=== PATIENT | female | born 1945 | race American Indian/Alaskan Native ===

== ENCOUNTER 2016-06-18 17:15 | Inpatient (IN) | payer OTHER, MEDICARE ==
[2016-06-18] MEDS ORDERED: Albuterol/Ipratropium 3.0-0.5 MG/3 ML Neb Soln NEB ONE (18:54)
--- NOTE | 2016-06-18 18:58 | EDM.PDOC ---
ED HISTORY OF PRESENT ILLNESS - General Chief Complaint: Respiratory Problem Stated Complaint: SHORT OF BREATH; [phone] Time Seen by Provider: 06/18/16 18:56 Source of Information: Reports: Patient History Limitations: Reports: No limitations - History of Present Illness INITIAL COMMENTS - FREE TEXT/NARRATIVE: few days h/o cough body aches saw clinic got z-ping still same. - Related Data Allergies/ADRs: Allergies Allergy/AdvReac Type Severity Reaction Status Date / Time No Known Allergies Allergy Verified 03/16/16 08:55 Home Meds: Home Meds Aspirin [Halfprin] 81 mg PO DAILY 09/18/14 [History] Calcium Carbonate/Vitamin D3 [Calcium 500 + Vit D 200 Caplet] 1 tab PO DAILY 04/04 [History] Insulin Aspart [Novolog Flexpen] 9 unit SUBCUT TID 09/18/14 [History] Insulin Detemir [Levemir] 56 units SUBCUT BEDTIME 09/18/14 [History] Levothyroxine 125 mcg PO DAILY 09/18/14 [History] Lisinopril 10 mg PO DAILY 09/18/14 [History] Multivitamin with Minerals [Multiple Vitamin] 1 tab PO DAILY 09/18/14 [History] sitaGLIPtin Phos/Metformin HCl [Janumet 50-500 MG] 1 tab PO BID 09/18/14 [ History] Past Medical History HEENT History: Reports: Cataract, Impaired vision Cardiovascular History: Reports: Hypertension Other Cardiovascular History: HYPERLIPIDEMIA Respiratory History: Reports: Bronchitis, recurrent Other Gastrointestinal History: positive hemoccult Other Musculoskeletal History: DEGENERATIVE JOINT DISEASE; FX R CLAVICLE Endocrine/Metabolic History: Reports: Diabetes, type II, Hypothyroidism Other Endocrine/Metabolic History: HYPOTHYRIODISM - Past Surgical History HEENT Surgical History: Reports: Other (see below) Other HEENT Surgeries/Procedures: Pt is scheduled for cataract surgery later this month Other Oncologic Surgeries/Procedures: R BREAST Social & Family History - Tobacco Use Smoking Status *Q: Never Smoker Second Hand Smoke Exposure: No - Caffeine Use Caffeine Use: Reports: Soda, Tea - Alcohol Use Days Per Week of Alcohol Use: 0 - Recreational Drug Use Recreational Drug Use: No ED ROS GENERAL - Review of Systems Review Of Systems: ROS reveals no pertinent complaints other than HPI. ED EXAM, GENERAL - Physical Exam Exam: See Below Exam Limited By: No limitations General Appearance: alert, WD/WN, mild distress, other (upset) Ears: hearing grossly normal Throat/Mouth: Normal voice, No airway compromise Head: atraumatic Neck: non-tender, full range of motion Respiratory/Chest: no respiratory distress, no accessory muscle use, rhonchi Cardiovascular: regular rate, rhythm GI/Abdominal: soft, non tender Neurological: alert, oriented, normal cognition, normal gait, no motor/sensory deficits Psychiatric: depressed mood Skin Exam: Warm, Dry Lymphatic: no adenopathy Course - Vital Signs Last Recorded V/S: Last Vital Signs Temp 36.0 C 06/18/16 20:39 Pulse 94 06/18/16 20:39 Resp 22 H 06/18/16 20:39 BP 116/58 L 06/18/16 20:39 Pulse Ox 88 L 06/18/16 20:39 - Orders/Labs/Meds Orders: Active Orders 24 hr Category Date Time Status RT Aerosol Therapy [RC] ASDIRECTED Care 06/18/16 18:55 Active Chest w Cont [CT] Urgent Exams 06/18/16 21:02 Taken CULTURE BLOOD [] Stat Lab 06/18/16 20:09 Received CULTURE STREP A CONFIRMATION [] Stat Lab 06/18/16 18:35 Results STREP SCRN A RAPID W CULT CONF [] Stat Lab 06/18/16 18:35 Results Sodium Chloride 0.9% [Normal Saline] 1,000 ml Med 06/18/16 20:15 Active IV ASDIRECTED Medication Orders Sodium Chloride (Normal Saline) 1,000 mls @ 50 mls/hr IV ASDIRECTED FLAVIA Last Admin: 06/18/16 20:15 Dose: 50 mls/hr Labs: Laboratory Tests 06/18/16 06/18/16 06/18/16 Range/Units 20:09 20:09 20:09 WBC 7.4 (5.0-10.0) 10^3/uL RBC 4.00 L (4.2-5.4) 10^6/uL Hgb 10.7 L (12.0-16.0) g/dL Hct 34.2 L (37.0-47.0) % MCV 85.5 (80-100) fL MCH 26.8 L (27.0-34.0) pg MCHC 31.3 L (33.0-35.0) g/dL Plt Count 187 (150-450) 10^3/uL Neut % (Auto) 62.8 (42.2-75.2) % Lymph % (Auto) 26.8 (20.5-50.1) % [place] % (Auto) 7.7 (2-8) % Eos % (Auto) 1.9 (1.0-3.0) % Baso % (Auto) 0.8 (0.0-1.0) % D-Dimer, Quantitative 1160 H (0-400) ng/mL Sodium 139 (135-145) mmol/L Potassium 3.7 (3.6-5.0) mmol/L Chloride 104 (101-111) mmol/L Carbon Dioxide 25.0 (21.0-31.0) mmol/L Anion Gap 13.7 BUN 17 (7-18) mg/dL Creatinine 0.9 (0.6-1.3) mg/dL Est Cr Clr Drug Dosing 50.94 mL/min Estimated GFR (MDRD) > 60 BUN/Creatinine Ratio 18.88 Glucose 71 L (74-105) mg/dL Lactic Acid (0.5-2.2) mmol/L Calcium 8.6 (8.4-10.2) mg/dl Total Bilirubin 0.8 (0.2-1.0) mg/dL AST 30 (10-42) IU/L ALT 16 (10-60) IU/L Alkaline Phosphatase 58 (42-121) IU/L Troponin I 0.02 (0.00-0.02) ng/ml B-Natriuretic Peptide 351 H (0-100) pg/ml Total Protein 7.0 (6.7-8.2) g/dl Albumin 3.6 (3.2-5.5) g/dl Globulin 3.4 Albumin/Globulin Ratio 1.06 / Range/Units 20:09 WBC (5.0-10.0) 10^3/uL RBC (4.2-5.4) 10^6/uL Hgb (12.0-16.0) g/dL Hct (37.0-47.0) % MCV (80-100) fL MCH (27.0-34.0) pg MCHC (33.0-35.0) g/dL Plt Count (150-450) 10^3/uL Neut % (Auto) (42.2-75.2) % Lymph % (Auto) (20.5-50.1) % [place] % (Auto) (2-8) % Eos % (Auto) (1.0-3.0) % Baso % (Auto) (0.0-1.0) % D-Dimer, Quantitative (0-400) ng/mL Sodium (135-145) mmol/L Potassium (3.6-5.0) mmol/L Chloride (101-111) mmol/L Carbon Dioxide (21.0-31.0) mmol/L Anion Gap BUN (7-18) mg/dL Creatinine (0.6-1.3) mg/dL Est Cr Clr Drug Dosing mL/min Estimated GFR (MDRD) BUN/Creatinine Ratio Glucose (74-105) mg/dL Lactic Acid 1.0 (0.5-2.2) mmol/L Calcium (8.4-10.2) mg/dl Total Bilirubin (0.2-1.0) mg/dL AST (10-42) IU/L ALT (10-60) IU/L Alkaline Phosphatase (42-121) IU/L Troponin I (0.00-0.02) ng/ml B-Natriuretic Peptide (0-100) pg/ml Total Protein (6.7-8.2) g/dl Albumin (3.2-5.5) g/dl Globulin Albumin/Globulin Ratio Meds: Medications Generic Name Dose Route Start Last Admin Trade Name Freq PRN Reason Stop Dose Admin Sodium Chloride 1,000 mls @ 50 mls/hr 06/18/16 20:15 06/18/16 20:15 Normal Saline IV 50 mls/hr ASDIRECTED FLAVIA Administration Discontinued Medications Generic Name Dose Route Start Last Admin Trade Name Freq PRN Reason Stop Dose Admin Albuterol/Ipratropium 3 ml 06/18/16 18:54 06/18/16 19:05 Duoneb 3.0-0.5 Mg/3 Ml NEB 06/18/16 18:55 3 ml ONETIME ONE Administration Furosemide 20 mg 06/18/16 20:04 06/18/16 20:15 Lasix IVPUSH 06/18/16 20:05 20 mg ONETIME ONE Administration Clindamycin Phosphate 900 mg/ 106 mls @ 200 mls/hr 06/18/16 21:09 06/18/16 21 :43 Sodium Chloride IV 06/18/16 21:40 Not Given ONETIME ONE Iopamidol 100 ml 06/18/16 21:02 06/18/16 21:41 Isovue-370 (76%) IVPUSH 06/18/16 21:03 100 ml ONETIME ONE Administration - Re-Assessments/Exams Free Text/Narrative Re-Assessment/Exam: 06/18/16 22:05 results discussed with Pt case discussed with Dr León who kindly admitted Pt Departure - Departure Time of Disposition: 22:06 Disposition: Admitted As Inpatient 67 Condition: good Clinical Impression: Pleural effusion Pneumonia Qualifiers: Pneumonia type: due to unspecified organism Laterality: right Lung location: lower lobe of lung Qualified Code(s): J18.1 - Lobar pneumonia, unspecified organism CHF (congestive heart failure) Qualifiers: Congestive heart failure type: unspecified congestive heart failure type Congestive heart failure chronicity: acute Qualified Code(s): I50.9 - Heart failure, unspecified Forms: ED Department Discharge - My Orders Last 24 Hours: My Active Orders 06/18/16 18:35 CULTURE STREP A CONFIRMATION [RM] Stat STREP SCRN A RAPID W CULT CONF [RM] Stat 06/18/16 18:55 RT Aerosol Therapy [RC] ASDIRECTED 06/18/16 20:09 CULTURE BLOOD [BC] Stat 06/18/16 20:15 Sodium Chloride 0.9% [Normal Saline] 1,000 ml IV ASDIRECTED 06/18/16 21:02 Chest w Cont [CT] Urgent - Assessment/Plan Last 24 Hours: My Active Orders 06/18/16 18:35 CULTURE STREP A CONFIRMATION [RM] Stat STREP SCRN A RAPID W CULT CONF [RM] Stat 06/18/16 18:55 RT Aerosol Therapy [RC] ASDIRECTED 06/18/16 20:09 CULTURE BLOOD [BC] Stat 06/18/16 20:15 Sodium Chloride 0.9% [Normal Saline] 1,000 ml IV ASDIRECTED 06/18/16 21:02 Chest w Cont [CT] Urgent
[2016-06-18] MEDS ORDERED: Furosemide 20 MG/2 ML VIAL IVPUSH ONE (20:04)
[2016-06-18] MEDS ORDERED: Sodium Chloride 0.9% 1,000 ML IV SCH (20:15)
[2016-06-18 20:52] LABS: CHLORIDE,CL 104 mmol/L (101-111); SODIUM,NA 139 mmol/L (135-145)
[2016-06-18] MEDS ORDERED: Iopamidol 755 Mg/ML 100 ML Bottle IVPUSH ONE (21:02)
[2016-06-18] MEDS ORDERED: Clindamycin Phosphate 900 MG in Sodium Chloride 0.9% 100 ML IV ONE (21:09)
--- NOTE | 2016-06-18 23:16 | HP ---
CHIEF COMPLAINT: Shortness of breath. HISTORY OF PRESENT ILLNESS: The patient is a 70-year-old lady who was admitted through the emergency room because of increasing shortness of breath. She mentioned a couple of weeks ago she was seen at the [facility] here in [place] because of bronchitis symptoms and she was given some penicillin-type of antibiotics for about 2 weeks, but she continued to have some coughing spells. Last week and early this week, she was seen at [facility] for a preop and she was noted to have some bronchitis. She was given Z-Dilan and she has been taking the Z-Dilan for the last 2 days, but lately she has noticed that even with minimal activity, she gets short of breath. She also admitted that she has some mild orthopnea. The patient denies though any fever or chills. Denies any chest pain, pedal edema, abdominal pain, dysuria, headache, nor any other complaints. Because of the above symptoms, she was seen in the emergency room. In the emergency room, she was noted to have right lobe pneumonia with some component of congestive heart failure/bilateral pleural effusion. Because of the above, she was then admitted for further evaluation and management. PAST MEDICAL HISTORY: Remarkable for type 2 diabetes mellitus, hypothyroidism, and hypertension. FAMILY HISTORY: Noncontributory. SOCIAL HISTORY: The patient is . She works at [employer]. She is a nonsmoker and non-alcohol drinker, and no illicit drug use. MEDICATIONS: Home medications: 1. Aspirin. 2. Calcium with vitamin D. 3. NovoLog. 4. Levemir. 5. Levothyroxine. 6. Lisinopril. 7. Multivitamins. 8. Janumet. ALLERGIES: No known drug allergies. REVIEW OF SYSTEMS: As in HPI. The rest of the review of systems is negative. PHYSICAL EXAMINATION: General: Very pleasant lady. She is alert and oriented, not in any acute respiratory distress. Vital Signs: Blood pressure is 120/64, pulse of 82, respirations 22, temperature of 97.2, saturation is 90% on room air. HEENT: Normocephalic. There are pink palpebral conjunctivae. Sclerae anicteric. No JVD. There is mild hepatojugular reflux. Heart: Regular rate and rhythm. Normal S1 and S2. No gallops. No significant murmurs. Lungs: Remarkable for faint crackles in both lower lung bases. No significant wheezing. Abdomen: Obese, soft, nontender. Bowel sounds positive. Extremities: Negative for any calf tenderness. There is trace bilateral pedal edema. No signs of cellulitis. LABORATORY DATA: CBC, WBC 7.4, hemoglobin is 10.7, hematocrit is 34.2, platelet is 187, D-dimer is 1160. Comp panel, glucose is 71. The rest of the panel unremarkable. BNP is 351. CAT scan of the chest is negative for any PE but showing right lobe infiltrate and bilateral pleural effusion. ADMITTING DIAGNOSES: 1. Right lobe pneumonia. 2. Congestive heart failure. 3. Type 2 diabetes mellitus. 4. Hypertension. 5. Hypothyroidism. TREATMENT PLAN: The patient is going to be admitted to General Medicine floor with telemetry. She will be empirically started on IV antibiotics. She will be continued on her insulin. She will be given IV Lasix and Lovenox for DVT prophylaxis, and the rest of the management as necessary. The patient is a full code. [facility] /[id number]
[2016-06-19] MEDS: Levofloxacin/Dextrose 5%-Water 500 MG in Premix Bag 1 BAG IV SCH ×2 (00:18→22:14)
[2016-06-19] MEDS: Albuterol/Ipratropium 3.0-0.5 MG/3 ML Neb Soln NEB SCH ×4 (00:19→22:13)
[2016-06-19] MEDS: Levothyroxine 125 MCG Tab PO SCH (06:13)
[2016-06-19] MEDS: Insulin Detemir 100 Units/ML 3 ML Pen SUBCUT SCH (07:05)
[2016-06-19] MEDS: Aspirin 81 MG Tab.EC PO SCH (08:26)
[2016-06-19] MEDS: Multivitamins,Therapeutic Tab PO SCH (08:26)
[2016-06-19] MEDS: Lisinopril 10 MG Tab PO SCH (08:26)
[2016-06-19] MEDS: Calcium Carbonate/Vitamin D3 1250 MG-200 Unit Tab PO SCH (08:26)
[2016-06-19] MEDS: Furosemide 20 MG Tab PO SCH (08:26)
[2016-06-19] MEDS: predniSONE 20 MG Tab PO SCH (08:26)
[2016-06-19] MEDS: Enoxaparin 40 MG/0.4 ML Syringe SUBCUT SCH (08:27)
[2016-06-19] MEDS: Insulin Aspart 100 Units/ML 3 ML Pen SUBCUT SCH ×3 (08:27→18:14)
--- NOTE | 2016-06-19 10:57 | PN ---
DATE: 06/19/2016 SUBJECTIVE: The patient this morning was feeling slightly better, and she had a good night sleep. She denies any worsening of shortness of breath. Denies any chest pain, abdominal pain, nausea, or vomiting. Telemetry remains in sinus rhythm with no significant arrhythmia. OBJECTIVE: Vital Signs: Blood pressure is 108/51, pulse of 87, respirations 20, temperature of 97.4, saturation is 96% on room air. Heart: Regular rate and rhythm. Normal S1 and S2. No gallops. No rubs. Lungs: Diminished breath sounds on both bases still with faint crackles, but no significant wheezing. Abdomen: Obese, otherwise soft and nontender. Bowel sounds positive. Extremities: Negative for any significant pedal edema. No calf tenderness. MEDICATIONS: Reviewed. PLAN: We will continue with her present management. We will discontinue telemetry and we will do a followup chest x-ray in a.m. [facility] /[id number]
[2016-06-19] MEDS: Acetaminophen 325 MG Tab PO PRN ×2 (12:53→21:42)
[2016-06-19] MEDS ORDERED: Insulin Detemir 100 Units/ML 3 ML Pen SUBCUT SCH (21:00)
[2016-06-19] MEDS ORDERED: Insulin Aspart 100 Units/ML 3 ML Pen SUBCUT ONE (21:20)
[2016-06-19] MEDS: Sodium Chloride 0.9% 10 ML Syringe FLUSH PRN (22:15)
[2016-06-20] MEDS: Albuterol/Ipratropium 3.0-0.5 MG/3 ML Neb Soln NEB SCH ×3 (06:14→22:42)
[2016-06-20] MEDS: Levothyroxine 125 MCG Tab PO SCH (06:14)
[2016-06-20] MEDS: Insulin Detemir 100 Units/ML 3 ML Pen SUBCUT SCH ×2 (06:33→08:06)
[2016-06-20 06:57] LABS: CHLORIDE,CL 102 mmol/L (101-111); SODIUM,NA 137 mmol/L (135-145)
[2016-06-20] MEDS: Furosemide 20 MG Tab PO SCH (08:02)
[2016-06-20] MEDS: Multivitamins,Therapeutic Tab PO SCH (08:02)
[2016-06-20] MEDS: Lisinopril 10 MG Tab PO SCH (08:02)
[2016-06-20] MEDS: Calcium Carbonate/Vitamin D3 1250 MG-200 Unit Tab PO SCH (08:02)
[2016-06-20] MEDS: Aspirin 81 MG Tab.EC PO SCH (08:05)
[2016-06-20] MEDS: predniSONE 20 MG Tab PO SCH (08:05)
[2016-06-20] MEDS: Insulin Aspart 100 Units/ML 3 ML Pen SUBCUT SCH ×3 (08:05→17:48)
[2016-06-20] MEDS: Enoxaparin 40 MG/0.4 ML Syringe SUBCUT SCH (08:08)
--- NOTE | 2016-06-20 08:56 | PN ---
DATE: 06/20/2016 SUBJECTIVE: The patient continues to do well. She had a good night sleep and shortness of breath is improving. The patient denies any chest pain, palpitation, orthopnea, abdominal pain, nausea, or vomiting. The patient's appetite has been good. OBJECTIVE: Vital Signs: Blood pressure is 124/66, pulse of 89, respirations of 20, temperature of 98. Heart: Regular rate and rhythm. Normal S1 and S2. No gallops. No rubs. Lungs: Diminished breath sounds on both bases. There are still very faint crackles, but improving. Abdomen: Soft, nontender. Bowel sounds positive. Extremities: Negative for any pedal edema. No calf tenderness. LABORATORY DATA: A lab workup this morning, CBC; WBC is 7.3, hemoglobin is 10.4, hematocrit is 33.2, platelet is 206. Chem-6; glucose is 343, BUN is 19. The rest of the panel unremarkable. BNP is 312. PLAN: We will continue with her present management, and she is going to have a followup chest x-ray today. We will also increase her activity to ad dinorah. We will also cut down the dose of prednisone to 20 mg a day. Otherwise, we will continue the rest of her management. [facility] /[id number]
--- NOTE | 2016-06-20 10:48 | CR ---
Clinical history: 70-year-old female shortness of breath, positive serum D dimer but "no CT evidence of pulmonary embolism or aortic dissection" (18 June 2016). Follow-up please. Interpretation: Abnormal. Generalized pulmonary venous congestion with cephalization of vascular flow and large dependent biba silor pleural effusions (cardiac silhouette upper limits of normal). CHF (BNP?) Renal failure? No new lung mass but some patchy retrocardiac right lower lobe atelectasis/infiltrate. No other infi ltrates, atelectasis or lobar collapse. No hilar/mediastinal lymphadenopathy. No pneumothorax.
[2016-06-20] MEDS ORDERED: Insulin Aspart 100 Units/ML 3 ML Pen SUBCUT ONE ×3 (12:00→21:30)
[2016-06-20] MEDS: Sodium Chloride 0.9% 10 ML Syringe FLUSH PRN ×3 (21:06→23:46)
[2016-06-20] MEDS: Levofloxacin/Dextrose 5%-Water 500 MG in Premix Bag 1 BAG IV SCH (22:43)
[2016-06-21] MEDS: Acetaminophen 325 MG Tab PO PRN (02:36)
[2016-06-21] MEDS: Levothyroxine 125 MCG Tab PO SCH (05:35)
[2016-06-21] MEDS: Albuterol/Ipratropium 3.0-0.5 MG/3 ML Neb Soln NEB SCH ×3 (07:14→23:00)
[2016-06-21] MEDS ORDERED: predniSONE 20 MG Tab PO SCH (08:00)
[2016-06-21] MEDS: Furosemide 20 MG Tab PO SCH (08:13)
[2016-06-21] MEDS: Calcium Carbonate/Vitamin D3 1250 MG-200 Unit Tab PO SCH (08:13)
[2016-06-21] MEDS: Multivitamins,Therapeutic Tab PO SCH (08:13)
[2016-06-21] MEDS: Enoxaparin 40 MG/0.4 ML Syringe SUBCUT SCH (08:13)
[2016-06-21] MEDS: Lisinopril 10 MG Tab PO SCH (08:13)
[2016-06-21] MEDS: Aspirin 81 MG Tab.EC PO SCH (08:13)
[2016-06-21] MEDS: Insulin Aspart 100 Units/ML 3 ML Pen SUBCUT SCH ×4 (08:15→21:48)
[2016-06-21] MEDS: Insulin Detemir 100 Units/ML 3 ML Pen SUBCUT SCH (08:16)
[2016-06-21] MEDS ORDERED: Non-Formulary Medication 1 Each (Sitagliptin Phos/Metformin Hcl [Janumet 50-500 Mg] 1 TAB) PO SCH (09:00)
[2016-06-21] MEDS ORDERED: Insulin Aspart 100 Units/ML 3 ML Pen SUBCUT ONE (12:21)
--- NOTE | 2016-06-21 13:54 | US ---
CLINICAL HISTORY: 70-year-old diabetic female, at bed rest, with abnormally elevated serum D dimer. Rule out DVT. INTERPRETATION: No sign of intraluminal echogenic thrombus and normal compressibility deep veins both groin, thigh a nd knee with satisfactory augmentation venous waveforms demonstrated respectively in the deep poplit eal, superficial and common veins both lower extremities. No Garcia's cyst. CONCLUSION: No sonographic evidence deep vein thrombosis, either lower extremity.
--- NOTE | 2016-06-21 15:48 | PCM.PN ---
- General Info Date of Service: 06/21/16 Admission Dx/Problem (Free Text): pneumonia Subjective Update: patient states that she is feeling better. She was started on steroids and is ago. Her blood sugars has been high. Today patient denies shortness breath, wheezing, chest pain, fever, chills, nausea, vomiting, and isn't incontinent symptoms, or any other symptoms. She denies history of smoking. - Patient Data Vitals - most recent: Last Vital Signs Temp 36.7 C 06/21/16 11:00 Pulse 102 H 06/21/16 14:41 Resp 20 06/21/16 14:32 BP 139/83 06/21/16 11:00 Pulse Ox 96 06/21/16 14:32 Weight - most recent: 86.296 kg I&O - last 24 hours: Intake & Output 06/21/16 06/21/16 06/21/16 06:59 14:59 22:59 Intake Total 1110 100 Output Total 700 1000 Balance 410 -900 Lab Results last 24 hrs: Laboratory Results - last 24 hr 06/20/16 06/20/16 06/20/16 Range/Units 16:55 17:05 20:48 Glucose 542 H* (74-105) mg/dL POC Glucose > 500 H* 433 H* (70-105) mg/dl 06/21/16 06/21/16 Range/Units 07:34 10:56 Glucose (74-105) mg/dL POC Glucose 311 H 451 H* (70-105) mg/dl Med Orders - Current: Current Medications Acetaminophen (Tylenol) 650 mg PO Q4H PRN PRN Reason: Pain (Mild 1-3)/fever Last Admin: 06/21/16 02:36 Dose: 650 mg Albuterol/Ipratropium (Duoneb 3.0-0.5 Mg/3 Ml) 3 ml NEB Q8HRRT [facility] Last Admin: 06/21/16 14:41 Dose: 3 ml Aspirin (Halfprin) 81 mg PO DAILY [facility] Last Admin: 06/21/16 08:13 Dose: 81 mg Calcium Carbonate (Calcium Carbonate/Vitamin D 1250 Mg-200 Unit) 1 tab PO DAILY [facility] Last Admin: 06/21/16 08:13 Dose: 1 tab Enoxaparin Sodium (Lovenox) 40 mg SUBCUT DAILY [facility] Last Admin: 06/21/16 08:13 Dose: 40 mg Furosemide (Lasix) 20 mg PO DAILY [facility] Last Admin: 06/21/16 08:13 Dose: 20 mg Insulin Aspart (Novolog) 9 unit SUBCUT TIDPC [facility] Last Admin: 06/21/16 12:22 Dose: Not Given Insulin Detemir (Levemir) 56 unit SUBCUT DAILY@0800 [facility] Last Admin: 06/21/16 08:16 Dose: 56 units Levofloxacin (Levaquin) 750 mg PO Q24H [facility] Levothyroxine Sodium (Levothyroxine) 125 mcg PO DAILY@0600 [facility] Last Admin: 06/21/16 05:35 Dose: 125 mcg Lisinopril (Prinivil) 10 mg PO DAILY [facility] Last Admin: 06/21/16 08:13 Dose: 10 mg Multivitamins (Thera) 1 each PO DAILY [facility] Last Admin: 06/21/16 08:13 Dose: 1 each Non-Formulary Medication (Sitagliptin Phos/Metformin Hcl [Janumet 50-500 Mg]) 1 tab PO BID [facility] Sodium Chloride (Saline Flush) 10 ml FLUSH ASDIRECTED PRN PRN Reason: Keep Vein Open Last Admin: 06/20/16 23:46 Dose: 10 ml Discontinued Medications Albuterol/Ipratropium (Duoneb 3.0-0.5 Mg/3 Ml) 3 ml NEB ONETIME ONE Stop: 06/18/16 18:55 Last Admin: 06/18/16 19:05 Dose: 3 ml Furosemide (Lasix) 20 mg IVPUSH ONETIME ONE Stop: 06/18/16 20:05 Last Admin: 06/18/16 20:15 Dose: 20 mg Sodium Chloride (Normal Saline) 1,000 mls @ 50 mls/hr IV ASDIRECTED [facility] Last Admin: 06/18/16 20:15 Dose: 50 mls/hr Clindamycin Phosphate 900 mg/ (Sodium Chloride) 106 mls @ 200 mls/hr IV ONETIME ONE Stop: 06/18/16 21:40 Last Admin: 06/18/16 21:43 Dose: Not Given Levofloxacin/Dextrose 500 mg/ (Premix) 100 mls @ 100 mls/hr IV Q24H [facility] Last Infusion: 06/20/16 23:48 Dose: Infused Insulin Aspart (Novolog) 5 unit SUBCUT ONETIME ONE Stop: 06/19/16 21:21 Last Admin: 06/19/16 21:40 Dose: 5 units Insulin Aspart (Novolog) 15 unit SUBCUT ONETIME ONE Stop: 06/20/16 12:01 Last Admin: 06/20/16 12:13 Dose: 15 units Insulin Aspart (Novolog) 15 unit SUBCUT ONETIME ONE Stop: 06/20/16 17:51 Last Admin: 06/20/16 17:56 Dose: 15 units Insulin Aspart (Novolog) 10 unit SUBCUT ONETIME ONE Stop: 06/20/16 21:31 Last Admin: 06/20/16 21:31 Dose: 10 units Insulin Aspart (Novolog) 15 unit SUBCUT ONETIME ONE Stop: 06/21/16 12:22 Last Admin: 06/21/16 13:13 Dose: 15 units Insulin Detemir (Levemir) 56 unit SUBCUT BEDTIME FLAVIA Insulin Detemir (Levemir) 56 unit SUBCUT ACBRK FLAVIA Last Admin: 06/20/16 06:33 Dose: Not Given Iopamidol (Isovue-370 (76%)) 100 ml IVPUSH ONETIME ONE Stop: 06/18/16 21:03 Last Admin: 06/18/16 21:41 Dose: 100 ml Prednisone (Prednisone) 40 mg PO WITHBREAKFAST FLAVIA Last Admin: 06/20/16 08:05 Dose: 40 mg Prednisone (Prednisone) 20 mg PO WITHBREAKFAST FLAVIA Last Admin: 06/21/16 08:13 Dose: 20 mg - Exam General: alert, oriented, cooperative. No: no acute distress, mild distress, moderate distress, severe distress, sedated, lethargic, obtunded HEENT: Pupils equal, Pupils reactive, EOMI, Mucous membr. moist/pink Neck: supple, trachea midline, no JVD Lungs: Normal respiratory effort, Decreased breath sounds (globally but fair air exchange). No: Crackles, Rales, Rhonchi, Rub, Stridor, Wheezing Cardiovascular: Regular Rate, Regular Rhythm Abdomen: bowel sounds present, soft, no tenderness, no distension. No: rigidity , rebound, guarding, tenderness, distension, CVA tenderness Back Exam: normal inspection Extremities: no edema Skin: warm, dry, intact Neurological: no new focal deficit Psy/Mental Status: alert, normal affect, normal mood - Problem List Review Problem List Initiated/Reviewed/Updated: Yes - My Orders Last 24 Hours: My Active Orders 06/21/16 09:00 sitaGLIPtin Phos/Metformin HCl [Janumet 50-500 MG] 1 tab PO BID 06/21/16 15:34 metFORMIN [Glucophage] 500 mg PO BIDMEALS 06/21/16 21:00 Levofloxacin [Levaquin] 750 mg PO Q24H - Plan Plan:: Right lower lobe pneumonia Continue his Levaquin Congestive heart failure Continue Lasix 20 po Daily Diabetes mellitus type II Blood sugar is uncontrolled We'll for the family to bring her Lilly but they forgot to do so. Will give metformin 500 [facility] hospital does not have Sitagliptin I will stop her prednisone as patient is not known for COPD or history of smoking. last dose was received yesterday. Start her on sliding scale insulin chronic hypothyroidism Continue Synthroid Essential hypertension Continue lisinopril continue Lovenox for DVT prophylaxis
[2016-06-21] MEDS: metFORMIN 500 MG Tab PO SCH ×2 (16:40→17:22)
[2016-06-21] MEDS ORDERED: Levofloxacin 500 MG Tab PO SCH (21:00)
[2016-06-22] MEDS: Acetaminophen 325 MG Tab PO PRN (00:16)
[2016-06-22] MEDS: Levothyroxine 125 MCG Tab PO SCH (06:15)
[2016-06-22] MEDS: Albuterol/Ipratropium 3.0-0.5 MG/3 ML Neb Soln NEB SCH (07:08)
[2016-06-22] MEDS ORDERED: Insulin Detemir 100 Units/ML 3 ML Pen SUBCUT SCH (07:19)
[2016-06-22] MEDS: Insulin Aspart 100 Units/ML 3 ML Pen SUBCUT SCH ×2 (08:15→12:28)
[2016-06-22] MEDS: Enoxaparin 40 MG/0.4 ML Syringe SUBCUT SCH (08:24)
[2016-06-22] MEDS: metFORMIN 500 MG Tab PO SCH (08:30)
[2016-06-22] MEDS: Calcium Carbonate/Vitamin D3 1250 MG-200 Unit Tab PO SCH (08:30)
[2016-06-22] MEDS: Aspirin 81 MG Tab.EC PO SCH (08:31)
[2016-06-22] MEDS: Furosemide 20 MG Tab PO SCH (08:31)
[2016-06-22] MEDS: Lisinopril 10 MG Tab PO SCH (08:31)
[2016-06-22] MEDS: Multivitamins,Therapeutic Tab PO SCH (08:31)
--- NOTE | 2016-06-22 09:45 | PCM.DCSUM1 ---
Discharge Summary - Hospital Course Free Text/Narrative:: 70-year-old female was sent as with a history of essential hypertension, diabetes mellitus type 2, hypothyroidism presented to emergency room with worsening shortness of breath that she had for 2 weeks. She failed 2 courses of antibiotic as an outpatient. She was complaining also of coughing spells. She admitted to having mild orthopnea. She denied fever, chills, chest pain, pedal edema, nausea, vomiting, abdominal pain, dysuria, headache. In the emergency room her chest x-ray showed right lobe pneumonia with possible component of congestive heart failure and bilateral pleural effusion. she was admitted to telemetry and started on empirical IV antibiotics with Levaquin in addition to IV Lasix. visit as she was started then steroids. Patient gradually got better however her blood sugar went up. On admission her d-dimer was elevated so CT chest with contrast was done and was negative for thrombosis. Also lower extremities Doppler was negative for DVT. since yesterday patient denies first breath, cough, chest pain, nausea, vomiting, fever, chills, any other symptoms. Her blood sugar has been running in the 400. Hospital did not have Januvia and family did not bring it. metformin was started yesterday. However blood sugar still high. Today increased levemir from 56-65 units. She was advised to check her blood sugar before each meal and if below 100 to call her private care provider or if taking her insulin. She was advised to see her primary care provider in 2-3 days. Patient verbalized understanding and agreed with the plan. Aerobic and anaerobic blood cultures have no growth for the lost 3 days. Rapid strep test and influenza test were negative on admission. - Discharge Data Discharge Date: 06/22/16 Discharge Disposition: Home, Self-Care 01 Condition: Good - Discharge Diagnosis/Problem(s) (1) Hyperglycemia SNOMED Code(s): 85128905 ICD Code: R73.9 - HYPERGLYCEMIA, UNSPECIFIED Status: Acute Current Visit : Yes (2) Diabetes mellitus SNOMED Code(s): 47727525 ICD Code: E11.9 - TYPE 2 DIABETES MELLITUS WITHOUT COMPLICATIONS Status: Acute Current Visit: Yes (3) Pneumonia SNOMED Code(s): 314503535 ICD Code: J18.9 - PNEUMONIA, UNSPECIFIED ORGANISM Status: Acute Current Visit: Yes Qualifiers: Pneumonia type: due to unspecified organism Laterality: right Lung location: lower lobe of lung Qualified Code(s): J18.1 - Lobar pneumonia, unspecified organism (4) Hypothyroidism SNOMED Code(s): 08989704 ICD Code: E03.9 - HYPOTHYROIDISM, UNSPECIFIED Status: Chronic Current Visit: No (5) Essential hypertension SNOMED Code(s): 14974829 ICD Code: I10 - ESSENTIAL (PRIMARY) HYPERTENSION Status: Chronic Current Visit: Yes - Patient Instructions Diet: Heart Healthy Diet, Diabetic Diet Activity: As Tolerated Driving: May Drive Today Showering/Bathing: May Shower Notify Provider of: Fever - Discharge Plan Prescriptions/Med Rec: Levofloxacin [Levaquin] 750 mg PO Q24H #3 tablet Home Medications: Home Meds Aspirin [Halfprin] 81 mg PO DAILY 09/18/14 [History] Calcium Carbonate/Vitamin D3 [Calcium 500-Vit D3 200 Caplet] 1 tab PO DAILY 04/04 [History] Insulin Aspart [Novolog Flexpen] 9 unit SUBCUT TID 09/18/14 [History] Levothyroxine 125 mcg PO DAILY 09/18/14 [History] Lisinopril 10 mg PO DAILY 09/18/14 [History] Multivitamin with Minerals [Multiple Vitamin] 1 tab PO DAILY 09/18/14 [History] sitaGLIPtin Phos/Metformin HCl [Janumet 50-500 MG] 1 tab PO BID 09/18/14 [ History] Insulin Detemir [Levemir] 65 unit SUBCUT DAILY@0800 pen 06/22/16 [Rx] Levofloxacin [Levaquin] 750 mg PO Q24H #3 tablet 06/22/16 [Rx] - Review of Systems General: Reports: No Symptoms HEENT: Reports: no symptoms Pulmonary: Reports: no symptoms Cardiovascular: Reports: No Symptoms Gastrointestinal: Reports: No symptoms Genitourinary: Reports: no symptoms Musculoskeletal: Reports: no symptoms Skin: Reports: no symptoms Neurological: Reports: No Symptoms Psychiatric: Reports: no symptoms - Patient Data Vitals - Most Recent: Last Vital Signs Temp 36.7 C 06/22/16 07:00 Pulse 85 06/22/16 07:08 Resp 20 06/22/16 07:00 BP 107/66 06/22/16 08:31 Pulse Ox 95 06/22/16 07:00 Weight - Most Recent: 86.296 kg I&O - Last 24 hours: Intake & Output 06/21/16 06/22/16 06/22/16 22:59 06:59 14:59 Intake Total 120 200 Balance 120 200 Lab Results - Last 24 hrs: Laboratory Results - last 24 hr 06/21/16 06/21/16 06/21/16 Range/Units 10:56 17:02 21:00 POC Glucose 451 H* 482 H* 417 H* (70-105) mg/dl 06/22/16 Range/Units 07:46 POC Glucose 263 H (70-105) mg/dl Med Orders - Current: Current Medications Acetaminophen (Tylenol) 650 mg PO Q4H PRN PRN Reason: Pain (Mild 1-3)/fever Last Admin: 06/22/16 00:16 Dose: 650 mg Albuterol/Ipratropium (Duoneb 3.0-0.5 Mg/3 Ml) 3 ml NEB Q8HRRT [facility] Last Admin: 06/22/16 07:08 Dose: 3 ml Aspirin (Halfprin) 81 mg PO DAILY [facility] Last Admin: 06/22/16 08:31 Dose: 81 mg Calcium Carbonate (Calcium Carbonate/Vitamin D 1250 Mg-200 Unit) 1 tab PO DAILY [facility] Last Admin: 06/22/16 08:30 Dose: 1 tab Enoxaparin Sodium (Lovenox) 40 mg SUBCUT DAILY [facility] Last Admin: 06/22/16 08:24 Dose: 40 mg Furosemide (Lasix) 20 mg PO DAILY [facility] Last Admin: 06/22/16 08:31 Dose: 20 mg Insulin Aspart (Novolog) 0 unit SUBCUT QIDACANDBED [facility] PRN Reason: Protocol Last Admin: 06/22/16 08:15 Dose: 9 units Insulin Detemir (Levemir) 65 unit SUBCUT DAILY@0800 [facility] Last Admin: 06/22/16 08:18 Dose: 65 units Levofloxacin (Levaquin) 750 mg PO Q24H [facility] Last Admin: 06/21/16 20:55 Dose: 750 mg Levothyroxine Sodium (Levothyroxine) 125 mcg PO DAILY@0600 [facility] Last Admin: 06/22/16 06:15 Dose: 125 mcg Lisinopril (Prinivil) 10 mg PO DAILY [facility] Last Admin: 06/22/16 08:31 Dose: 10 mg Metformin HCl (Glucophage) 500 mg PO BIDMEALS [facility] Last Admin: 06/22/16 08:30 Dose: 500 mg Multivitamins (Thera) 1 each PO DAILY [facility] Last Admin: 06/22/16 08:31 Dose: 1 each Sodium Chloride (Saline Flush) 10 ml FLUSH ASDIRECTED PRN PRN Reason: Keep Vein Open Last Admin: 06/20/16 23:46 Dose: 10 ml Discontinued Medications Albuterol/Ipratropium (Duoneb 3.0-0.5 Mg/3 Ml) 3 ml NEB ONETIME ONE Stop: 06/18/16 18:55 Last Admin: 06/18/16 19:05 Dose: 3 ml Furosemide (Lasix) 20 mg IVPUSH ONETIME ONE Stop: 06/18/16 20:05 Last Admin: 06/18/16 20:15 Dose: 20 mg Sodium Chloride (Normal Saline) 1,000 mls @ 50 mls/hr IV ASDIRECTED [facility] Last Admin: 06/18/16 20:15 Dose: 50 mls/hr Clindamycin Phosphate 900 mg/ (Sodium Chloride) 106 mls @ 200 mls/hr IV ONETIME ONE Stop: 06/18/16 21:40 Last Admin: 06/18/16 21:43 Dose: Not Given Levofloxacin/Dextrose 500 mg/ (Premix) 100 mls @ 100 mls/hr IV Q24H [facility] Last Infusion: 06/20/16 23:48 Dose: Infused Insulin [facility] ([facility]) [facility] Admin: 06/21/16 12:22 Dose: Not Given Insulin Aspart (Novolog) 5 unit SUBCUT ONETIME ONE Stop: 06/19/16 21:21 Last Admin: 06/19/16 21:40 Dose: 5 units Insulin Aspart (Novolog) 15 unit SUBCUT ONETIME ONE Stop: 06/20/16 12:01 Last Admin: 06/20/16 12:13 Dose: 15 units Insulin Aspart (Novolog) 15 unit SUBCUT ONETIME ONE Stop: 06/20/16 17:51 Last Admin: 06/20/16 17:56 Dose: 15 units Insulin Aspart (Novolog) 10 unit SUBCUT ONETIME ONE Stop: 06/20/16 21:31 Last Admin: 06/20/16 21:31 Dose: 10 units Insulin Aspart (Novolog) 15 unit SUBCUT ONETIME ONE Stop: 06/21/16 12:22 Last Admin: 06/21/16 13:13 Dose: 15 units Insulin Detemir (Levemir) 56 unit SUBCUT BEDTIME [facility] Insulin Detemir (Levemir) 56 unit SUBCUT ACBRK [facility] Last Admin: 06/20/16 06:33 Dose: Not Given Insulin Detemir (Levemir) 56 unit SUBCUT DAILY@0800 [facility] Last Admin: 06/21/16 08:16 Dose: 56 units Iopamidol (Isovue-370 (76%)) 100 ml IVPUSH ONETIME ONE Stop: 06/18/16 21:03 Last Admin: 06/18/16 21:41 Dose: 100 ml Non-Formulary Medication (Sitagliptin Phos/Metformin Hcl [Janumet 50-500 Mg]) 1 tab PO BID [facility] Last Admin: 06/21/16 16:41 Dose: Not Given Prednisone (Prednisone) 40 mg PO WITHBREAKFAST [facility] Last Admin: 06/20/16 08:05 Dose: 40 mg Prednisone (Prednisone) 20 mg PO WITHBREAKFAST [facility] Last Admin: 06/21/16 08:13 Dose: 20 mg - Exam General: Reports: alert, oriented, cooperative. Denies: no acute distress, mild distress, moderate distress, severe distress, sedated, lethargic, obtunded HEENT: Reports: Pupils equal, Pupils reactive, EOMI. Denies: Scleral icterus Neck: Reports: supple, trachea midline, no JVD Lungs: Reports: Clear to auscultation, Normal respiratory effort. Denies: Crackles, Rales, Rhonchi, Rub, Stridor, Wheezing Cardiovascular: Reports: Regular Rate, Regular Rhythm Abdomen: Reports: bowel sounds present, soft, no tenderness, no distension. Denies: rigidity, rebound, guarding, tenderness, distension, CVA tenderness, organomegaly (Female) Exam: Deferred Rectal (Female) Exam: Deferred Back Exam: Reports: normal inspection, full range of motion Extremities: Reports: no edema, no clubbing, no cyanosis, no calf tenderness. Denies: calf tenderness Skin: Reports: warm, dry, intact Neurological: Reports: no new focal deficit, normal gait, normal speech, normal tone, strength equal bilateral, sensation intact, cranial nerves intact Psy/Mental Status: Reports: alert, normal affect, normal mood *Q Meaningful Use (DIS) - VTE *Q VTE Criteria *Q: - Stroke *Q Stroke Criteria *Q: - AMI *Q AMI Criteria *Q:
[2016-06-22 10:45] VITALS: BP 140/71
== END 2016-06-22 13:56 | disposition home or self-care (01) | DRG 195 ==
LOC: DL.ED 17:15 → DL.MS 22:10 → DL.ED 22:10 → UNDOADMIN 22:10 → DL.MS 22:45
PROVIDERS: ADMIT Internal Medicine; ATTEND Internal Medicine
DX: J18.1 Lobar pneumonia, unspecified organism (principal); I11.0 Hypertensive heart disease with heart failure; E03.9 Hypothyroidism, unspecified; I50.9 Heart failure, unspecified; E11.65 Type 2 diabetes mellitus with hyperglycemia; Z79.4 Long term (current) use of insulin
CPT/HCPCS: 36415; 71020; 71260; 80048; 80053; 82947; 82962; 83605; 83880; 84484; 85025; 85379; 87040; 87081; 87430; 87804; 93970; 94640; 96361; 96374; 99285; A9270-GY; J1650; J1815-GY; J1940; J1956; J7030; J7050; Q9967

== ENCOUNTER 2016-07-07 08:04 | Day surgery (SDC) | payer OTHER ==
[~2016-07-07 08:04] MED LIST: Acetaminophen 325 MG Tab PO PRN; Acetaminophen/Codeine 300-30 MG Tab PO PRN; Cataract Ophth Solution EYELF ONE; Moxifloxacin 0.5% Ophth Soln 3 ML Bottle EYELF ONE; Ondansetron 4 MG/2 ML SDV IVPUSH PRN; Phenylephrine 10% Ophth Soln 5 ML Bot EYELF ONE; Phenylephrine 10% Ophth Soln 5 ML Bot EYELF PRN; Povidone-Iodine 5% Sterile Ophth Soln 30 ML Bottle EYELF ONE; Proparacaine 0.5% Ophth Soln 15 ML Bottle EYELF ONE; Sodium Chloride 0.9% 10 ML Syringe FLUSH PRN; Timolol Maleate 0.5% Ophth Soln 5 ML Bottle EYELF ONE
[2016-07-07] MEDS ORDERED: Midazolam 1 MG/ML 2 ML SDV ONE (08:48)
[2016-07-07] MEDS ORDERED: Dexamethasone 4 MG/ML SDV ONE (08:48)
[2016-07-07] MEDS ORDERED: Lidocaine 1% 30 ML SDV ONE (09:11)
[2016-07-07] MEDS ORDERED: Apraclonidine 0.5% Ophth Soln 5 ML Bot EYELF ONE (09:12)
[2016-07-07] MEDS ORDERED: Diclofenac Sodium 0.1% Ophth Soln 5 ML Bottle EYELF ONE (09:12)
[2016-07-07] MEDS ORDERED: Povidone-Iodine 5% Sterile Ophth Soln 30 ML Bottle EYELF ONE (09:12)
[2016-07-07] MEDS ORDERED: Balanced Salt Solution Ophth Irrig 500 ML Bottle IOCULAR ONE (09:13)
[2016-07-07] MEDS ORDERED: Dexamethasone/Neomycin/Polymyxin B Ophth Oint 3.5 GM Tube EYELF ONE (09:13)
[2016-07-07] MEDS ORDERED: Vancomycin 500 MG SDV EYELF ONE (09:13)
[2016-07-07] MEDS ORDERED: Chondroitin Sulfate/Hyaluronate Sodium Ophth Inj 0.75 ML Syringe EYELF ONE (09:14)
--- NOTE | 2016-07-07 11:15 | OR ---
DATE: 07/07/2016 PREOPERATIVE DIAGNOSIS: Cataract, left eye. POSTOPERATIVE DIAGNOSIS: Cataract, left eye. PROCEDURE: Extracapsular cataract extraction with intraocular lens implant, left eye. ANESTHESIA: Topical/local MAC. COMPLICATIONS: None. INDICATION: The patient was seen in the clinic with complaints of blurred vision, difficulty reading. She is unhappy with her vision. Clinical examination revealed visually significant cataract. I explained options. I offered cataract surgery and I explained risks preoperatively including but not limited to, infection, retinal detachment, loss of vision, need for additional surgery, and risks associated with anesthesia. We discussed implant options. She has preexisting of astigmatism, and she has requested a monofocal implant. She is comfortable wearing glasses following surgery if necessary. She voiced an understanding with respect to risks, limitations and wished to proceed. OPERATIVE DESCRIPTION: After informed consent was obtained and the risks, benefits, and alternatives were explained, the patient was brought to the operative suite and topical anesthesia was administered. The patient was then prepped and draped in the sterile fashion and attention was placed on the left eye. A sterile lid speculum was placed into the left eye to allow operative exposure. A full-thickness paracentesis was made in the temporal portion of the operative eye. Preservative-free lidocaine 0.1 mL was injected into the anterior chamber followed by viscoelastic. A full-thickness corneal incision was then made into the anterior chamber. A bent needle cystotome was used to create a small bernadette in the anterior capsule. The capsulorrhexis forceps was then used to create a 360-degree curvilinear capsulorrhexis. The nucleus was then removed using a phacoemulsification handpiece and the remaining cortical material was then removed with irrigation and aspiration handpiece. Following removal of the cortical material, the capsular bag was then inspected and noted to be free of any holes or tears. Viscoelastic was then injected into the capsular bag and the intraocular lens was inserted into the capsular bag. No complications occurred. The viscoelastic material was then removed from both the anterior and posterior chambers and from behind the IOL. The lens and capsular bag were then reinspected. The IOL was well centered and the capsular bag intact. The wound and paracentesis sites were inspected and hydrated with balanced saline solution. Both were found to be self-sealing. The intraocular pressure was assessed digitally and found to be within normal range. A good red reflex was noted at the completion of the procedure. No complications occurred during the operation. At the completion of the procedure, Maxitrol, Voltaren, and Iopidine drops were placed into the operative eye. A sterile eye shield was placed over the operative eye and the patient was transported to the postoperative recovery area having tolerated the procedure well. Postoperative instructions were given along with a postoperative appointment. The patient was advised to call with any questions or concerns. [facility] /[id number]
[2016-07-07 12:53] VITALS: BP 108/52
[2016-07-07] MEDS ORDERED: Dexamethasone 4 MG/ML SDV IV ONE (16:34)
[2016-07-07] MEDS ORDERED: Midazolam 1 MG/ML 2 ML SDV IV ONE (16:34)
== END 2016-07-07 10:23 | disposition home or self-care (01) ==
LOC: DL.SDS 08:04
PROVIDERS: ATTEND Ophthalmology
DX: H26.9 Unspecified cataract (principal); E11.9 Type 2 diabetes mellitus without complications; E03.9 Hypothyroidism, unspecified; E78.5 Hyperlipidemia, unspecified; I10 Essential (primary) hypertension; Z90.49 Acquired absence of other specified parts of digestive tract; Z98.890 Other specified postprocedural states; Z98.51 Tubal ligation status
CPT/HCPCS: 66984; A9270; C1780; J1100; J2250; J3370; J7050

== ENCOUNTER 2016-07-14 08:56 | Day surgery (SDC) | payer OTHER ==
[~2016-07-14 08:56] MED LIST changes: -Acetaminophen 325 MG Tab PO PRN; -Acetaminophen/Codeine 300-30 MG Tab PO PRN; -Cataract Ophth Solution EYELF ONE; +Dexamethasone 4 MG/ML SDV ONE; +Midazolam 1 MG/ML 2 ML SDV ONE; -Moxifloxacin 0.5% Ophth Soln 3 ML Bottle EYELF ONE; -Ondansetron 4 MG/2 ML SDV IVPUSH PRN; -Phenylephrine 10% Ophth Soln 5 ML Bot EYELF ONE; -Phenylephrine 10% Ophth Soln 5 ML Bot EYELF PRN; -Povidone-Iodine 5% Sterile Ophth Soln 30 ML Bottle EYELF ONE; -Proparacaine 0.5% Ophth Soln 15 ML Bottle EYELF ONE; -Sodium Chloride 0.9% 10 ML Syringe FLUSH PRN; -Timolol Maleate 0.5% Ophth Soln 5 ML Bottle EYELF ONE
[2016-07-14] MEDS ORDERED: Acetaminophen/Codeine 300-30 MG Tab PO PRN (09:00)
[2016-07-14] MEDS ORDERED: Phenylephrine 10% Ophth Soln 5 ML Bot EYERT PRN (09:00)
[2016-07-14] MEDS ORDERED: Moxifloxacin 0.5% Ophth Soln 3 ML Bottle EYERT ONE (09:00)
[2016-07-14] MEDS ORDERED: Timolol Maleate 0.5% Ophth Soln 5 ML Bottle EYERT ONE (09:00)
[2016-07-14] MEDS ORDERED: Phenylephrine 10% Ophth Soln 5 ML Bot EYERT ONE (09:00)
[2016-07-14] MEDS ORDERED: Cataract Ophth Solution EYERT ONE (09:00)
[2016-07-14] MEDS ORDERED: Proparacaine 0.5% Ophth Soln 15 ML Bottle EYERT ONE (09:00)
[2016-07-14] MEDS ORDERED: Ondansetron 4 MG/2 ML SDV IVPUSH PRN (09:00)
[2016-07-14] MEDS ORDERED: Acetaminophen 325 MG Tab PO PRN (09:00)
[2016-07-14] MEDS ORDERED: Sodium Chloride 0.9% 10 ML Syringe FLUSH PRN (09:00)
[2016-07-14] MEDS ORDERED: Povidone-Iodine 5% Sterile Ophth Soln 30 ML Bottle EYERT ONE ×2 (09:00→09:56)
[2016-07-14] MEDS ORDERED: Dexamethasone/Neomycin/Polymyxin B Ophth Oint 3.5 GM Tube EYERT ONE (09:56)
[2016-07-14] MEDS ORDERED: Tetracaine HCl/PF 0.5% 4 ML Bottle EYERT ONE (09:57)
[2016-07-14] MEDS ORDERED: Apraclonidine 0.5% Ophth Soln 5 ML Bot EYERT ONE (09:57)
[2016-07-14] MEDS ORDERED: Vancomycin 500 MG SDV EYERT ONE (09:57)
[2016-07-14] MEDS ORDERED: Chondroitin Sulfate/Hyaluronate Sodium Ophth Inj 0.75 ML Syringe EYERT ONE (09:57)
[2016-07-14] MEDS ORDERED: Lidocaine 1% 30 ML SDV ONE (09:57)
[2016-07-14] MEDS ORDERED: Balanced Salt Solution Ophth Irrig 500 ML Bottle IOCULAR ONE (09:58)
--- NOTE | 2016-07-14 10:57 | OR ---
DATE: 07/14/2016 PREOPERATIVE DIAGNOSIS: Cataract, right eye. POSTOPERATIVE DIAGNOSIS: Cataract, right eye. PROCEDURE: Extracapsular cataract extraction with intraocular lens implant, right eye. ANESTHESIA: Topical/local MAC. COMPLICATIONS: None. INDICATION: Mrs. Ordaz was seen in the clinic. She has complained of a progressive change in vision. Her clinical examination reveals visually significant cataract and astigmatism. I explained options. I offered cataract surgery and I explained risks preoperatively including but not limited to, infection, retinal detachment, loss of vision, need for additional surgery, and risks associated with anesthesia. We discussed implant options. She has requested a toric implant. I explained that she may still require spectacle correction for some activities. She has voiced an understanding. She is symptomatic and requested surgery. OPERATIVE DESCRIPTION: After informed consent was obtained and the risks, benefits, and alternatives were explained, the patient was brought to the operative suite and topical anesthesia was administered. The patient was then prepped and draped in the sterile fashion and attention was placed on the right eye. A sterile lid speculum was placed into the right eye to allow operative exposure. A full-thickness paracentesis was made in the temporal portion of the operative eye. Preservative-free lidocaine 0.1 mL was injected into the anterior chamber followed by viscoelastic. A full-thickness corneal incision was then made into the anterior chamber. A bent needle cystotome was used to create a small bernadette in the anterior capsule. The capsulorrhexis forceps was then used to create a 360-degree curvilinear capsulorrhexis. The nucleus was then removed using a phacoemulsification handpiece and the remaining cortical material was then removed with irrigation and aspiration handpiece. Following removal of the cortical material, the capsular bag was then inspected and noted to be free of any holes or tears. Viscoelastic was then injected into the capsular bag and the intraocular lens was inserted into the capsular bag. The implant was oriented to correspond with preoperative corneal freeman made with the patient in the upright position. The viscoelastic material was then removed from both the anterior and posterior chambers and from behind the IOL. The lens and capsular bag were then reinspected. The IOL was well centered and the capsular bag intact. The wound and paracentesis sites were inspected and hydrated with balanced saline solution. Both were found to be self-sealing. The intraocular pressure was assessed digitally and found to be within normal range. A good red reflex was noted at the completion of the procedure. No complications occurred during the operation. At the completion of the procedure, Maxitrol, Voltaren, and Iopidine drops were placed into the operative eye. A sterile eye shield was placed over the operative eye and the patient was transported to the postoperative recovery area having tolerated the procedure well. Postoperative instructions were given along with a postoperative appointment. The patient was advised to call with any questions or concerns. No complications occurred. [facility] /[id number]
[2016-07-14 12:44] VITALS: BP 114/61
[2016-07-14] MEDS ORDERED: Dexamethasone 4 MG/ML SDV IV ONE (16:42)
[2016-07-14] MEDS ORDERED: Midazolam 1 MG/ML 2 ML SDV IV ONE (16:42)
== END 2016-07-14 11:00 | disposition home or self-care (01) ==
LOC: DL.SDS 08:56
PROVIDERS: ATTEND Ophthalmology
DX: H26.9 Unspecified cataract (principal); E11.9 Type 2 diabetes mellitus without complications; E78.5 Hyperlipidemia, unspecified; E03.9 Hypothyroidism, unspecified; Z90.49 Acquired absence of other specified parts of digestive tract; Z98.890 Other specified postprocedural states; Z98.51 Tubal ligation status
CPT/HCPCS: 66984; A9270; J1100; J2250; J3370; J7050; V2787

== ENCOUNTER 2016-08-03 16:23 | Inpatient (IN) | payer OTHER, MEDICARE ==
--- NOTE | 2016-08-03 17:20 | EDM.PDOC ---
{null, ED HPI GENERAL MEDICAL PROBLEM - General Chief Complaint: Respiratory Problem Stated Complaint: WHEN LAYS DOWN, CAN'T BREATH Time Seen by Provider: 08/03/16 17:15 Source of Information: Reports: Patient History Limitations: Reports: No Limitations - History of Present Illness INITIAL COMMENTS - FREE TEXT/NARRATIVE: This 70 yo female patient reports to the ED with increased shortness of breath over the past 2 days. The patient reports she has not been able to lye down today due to increased shortness of breath. The patient reports she was diagnosed with pneumonia about 1 month ago with similar symptoms. The patient attempted to get into the Clinic, but could not get an appointment until tomorrow morning. The patient was only able to speak 4-5 words between breaths. Onset: Sudden Onset Date: 08/02/16 Duration: Constant, Getting Worse Location: Reports: Chest Quality: Reports: Dull, Pressure Severity: Moderate Improves with: Reports: Rest Worsens with: Reports: Movement Associated Symptoms: Reports: Cough, Shortness of Breath, Weakness - Related Data Allergies Allergy/AdvReac Type Severity Reaction Status Date / Time No Known Allergies Allergy Verified 07/14/16 09:43 Home Meds: Home Meds Aspirin [Halfprin] 81 mg PO DAILY 09/18/14 [History] Calcium Carbonate/Vitamin D3 [Calcium 500-Vit D3 200 Caplet] 1 tab PO DAILY 04/04 [History] Insulin Aspart [Novolog Flexpen] 9 unit SUBCUT TID 09/18/14 [History] Levothyroxine 125 mcg PO DAILY 09/18/14 [History] Lisinopril 10 mg PO DAILY 09/18/14 [History] Multivitamin with Minerals [Multiple Vitamin] 1 tab PO DAILY 09/18/14 [History] sitaGLIPtin Phos/Metformin HCl [Janumet 50-500 MG] 1 tab PO BIDMEALS 09/18/14 [ History] Insulin Detemir [Levemir] 56 unit SUBCUT DAILY@0800 07/13/16 [History] Ketorolac [Acular 0.5% Ophth Soln] 1 drop EYEBOTH ASDIRECTED 07/13/16 [History] Moxifloxacin [Vigamox 0.5% Ophth Soln] 1 drop EYEBOTH ASDIRECTED 07/13/16 [ History] prednisoLONE Acetate [Prednisolone Acetate] 1 drop EYEBOTH ASDIRECTED 07/13/16 [ History] Past Medical History HEENT History: Reports: Cataract, Impaired Vision Cardiovascular History: Reports: Hypertension, Other (See Below) Other Cardiovascular History: HYPERLIPIDEMIA Respiratory History: Reports: Bronchitis, Recurrent Gastrointestinal History: Reports: Other (See Below) Other Gastrointestinal History: positive hemoccult Genitourinary History: Reports: None [employer] 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 Endocrine/Metabolic History: Reports: Diabetes, Type II, Hypothyroidism Other Endocrine/Metabolic History: HYPOTHYRIODISM Hematologic History: Reports: None Immunologic History: Reports: Other (See Below) Other Immunologic History: MRSA Oncologic (Cancer) History: Reports: None Dermatologic History: Reports: Other (See Below) Other Dermatologic History: CYST REMOVAL BREAST - Infectious Disease History Infectious Disease History: Reports: Chicken Pox, Measles, Mumps, Rubella - Past Surgical History Head Surgeries/Procedures: Reports: None HEENT Surgical History: Reports: Cataract Surgery Female Surgical History: Reports: Tubal Ligation Other Oncologic Surgeries/Procedures: non-cancerous cyst removed from right breast Social & Family History - Family History Cardiac: Reports: CAD, [place] Neurological: Reports: CVA Endocrine/Metabolic: Reports: Other (See Below) Other Endocrine/Metabolic Family History: Diabetes. Type unknown Oncologic: Reports: Breast - Tobacco Use Smoking Status *Q: Never Smoker Second Hand Smoke Exposure: Yes - Caffeine Use Caffeine Use: Reports: Soda, Tea - Alcohol Use Days Per Week of Alcohol Use: 0 - Recreational Drug Use Recreational Drug Use: No ED ROS GENERAL - Review of Systems Review Of Systems: ROS reveals no pertinent complaints other than HPI. ED EXAM, GENERAL - Physical Exam Exam: See Below Exam Limited By: No Limitations General Appearance: Alert, WD/WN, Moderate Distress, Obese Eye Exam: Bilateral Eye: EOMI, Normal Inspection, PERRL Ears: Normal External Exam, Normal Canal, Hearing Grossly Normal, Normal TMs Nose: Normal Inspection, Normal Mucosa, No Blood Throat/Mouth: Normal Inspection, Normal Lips, Normal Teeth, Normal Gums, Normal Oropharynx, Normal Voice, No Airway Compromise Head: Atraumatic, Normocephalic Neck: Normal Inspection, Supple, Non-Tender, Full Range of Motion Respiratory/Chest: No Accessory Muscle Use, Chest Non-Tender, Decreased Breath Sounds (bilateral lower lobes), Rhonchi (diffuse) Cardiovascular: Normal Peripheral Pulses, Regular Rate, Rhythm, No Edema, No Gallop, No JVD, No Murmur, No Rub GI/Abdominal: Normal Bowel Sounds, Soft, Non-Tender, No Organomegaly, No Distention, No Abnormal Bruit, No Mass (Female) Exam: Deferred Rectal (Female) Exam: Deferred Back Exam: Normal Inspection, Full Range of Motion, NT Extremities: Normal Inspection, Normal Range of Motion, Non-Tender, Normal Capillary Refill, No Pedal Edema Neurological: Alert, Oriented, CN II-XII Intact, Normal Cognition, Normal Gait, Normal Reflexes, No Motor/Sensory Deficits Psychiatric: Normal Affect, Normal Mood Skin Exam: Warm, Dry, Intact, Normal Color, No Rash Lymphatic: No Adenopathy Course - Vital Signs Last Recorded V/S: Last Vital Signs Temp 37.3 C 08/03/16 16:50 Pulse 100 08/03/16 16:50 Resp 16 08/03/16 16:50 BP 126/68 08/03/16 16:50 Pulse Ox 98 08/03/16 16:50 - Orders/Labs/Meds Orders: Active Orders 24 hr Category Date Time Status EKG Documentation Completion [RC] URGENT Care 08/03/16 18:27 Active RT Aerosol Therapy [RC] ASDIRECTED Care 08/03/16 17:22 Active CULTURE BLOOD [BC] Stat Lab 08/03/16 17:24 Received Labs: Laboratory Tests 08/03/16 08/03/16 08/03/16 Range/Units 17:24 17:24 17:24 WBC 8.8 (5.0-10.0) 10^3/uL RBC 3.65 L (4.2-5.4) 10^6/uL Hgb 9.5 L (12.0-16.0) g/dL Hct 31.1 L (37.0-47.0) % MCV 85.2 (80-100) fL MCH 26.0 L (27.0-34.0) pg MCHC 30.5 L (33.0-35.0) g/dL Plt Count 202 (150-450) 10^3/uL Neut % (Auto) 74.5 (42.2-75.2) % Lymph % (Auto) 17.4 L (20.5-50.1) % [place] % (Auto) 6.1 (2-8) % Eos % (Auto) 1.4 (1.0-3.0) % Baso % (Auto) 0.6 (0.0-1.0) % Sodium 136 (135-145) mmol/L Potassium 4.1 (3.6-5.0) mmol/L Chloride 104 (101-111) mmol/L Carbon Dioxide 26.0 (21.0-31.0) mmol/L Anion Gap 10.1 BUN 16 (7-18) mg/dL Creatinine 1.0 (0.6-1.3) mg/dL Est Cr Clr Drug Dosing 45.85 mL/min Estimated GFR (MDRD) 55 BUN/Creatinine Ratio 16.00 Glucose 90 (74-105) mg/dL Lactic Acid 1.0 (0.5-2.2) mmol/L Calcium 8.7 (8.4-10.2) mg/dl Total Bilirubin 0.8 (0.2-1.0) mg/dL AST 33 (10-42) IU/L ALT 25 (10-60) IU/L Alkaline Phosphatase 61 (42-121) IU/L Troponin I (0.00-0.02) ng/ml B-Natriuretic Peptide 674 H (0-100) pg/ml Total Protein 6.9 (6.7-8.2) g/dl Albumin 3.7 (3.2-5.5) g/dl Globulin 3.2 Albumin/Globulin Ratio 1.16 // Range/Units 17:24 WBC (5.0-10.0) 10^3/uL RBC (4.2-5.4) 10^6/uL Hgb (12.0-16.0) g/dL Hct (37.0-47.0) % MCV (80-100) fL MCH (27.0-34.0) pg MCHC (33.0-35.0) g/dL Plt Count (150-450) 10^3/uL Neut % (Auto) (42.2-75.2) % Lymph % (Auto) (20.5-50.1) % [place] % (Auto) (2-8) % Eos % (Auto) (1.0-3.0) % Baso % (Auto) (0.0-1.0) % Sodium (135-145) mmol/L Potassium (3.6-5.0) mmol/L Chloride (101-111) mmol/L Carbon Dioxide (21.0-31.0) mmol/L Anion Gap BUN (7-18) mg/dL Creatinine (0.6-1.3) mg/dL Est Cr Clr Drug Dosing mL/min Estimated GFR (MDRD) BUN/Creatinine Ratio Glucose (74-105) mg/dL Lactic Acid (0.5-2.2) mmol/L Calcium (8.4-10.2) mg/dl Total Bilirubin (0.2-1.0) mg/dL AST (10-42) IU/L ALT (10-60) IU/L Alkaline Phosphatase (42-121) IU/L Troponin I 0.03 H* (0.00-0.02) ng/ml B-Natriuretic Peptide (0-100) pg/ml Total Protein (6.7-8.2) g/dl Albumin (3.2-5.5) g/dl Globulin Albumin/Globulin Ratio Meds: Medications Discontinued Medications Generic Name Dose Route Start Last Admin Trade Name Freq PRN Reason Stop Dose Admin Albuterol/Ipratropium 3 ml 08/03/16 17:22 08/03/16 17:25 Duoneb 3.0-0.5 Mg/3 Ml NEB 08/03/16 17:23 3 ml ONETIME ONE Administration Albuterol/Ipratropium Confirm 08/03/16 17:21 08/03/16 17:23 Duoneb 3.0-0.5 Mg/3 Ml Administered 08/03/16 17:22 Not Given Dose 3 ml .ROUTE .STK-MED ONE Furosemide 40 mg 08/03/16 18:10 08/03/16 18:31 Lasix IVPUSH 08/03/16 18:11 40 mg NOW ONE Administration Departure - Departure Time of Disposition: 18:55 Disposition: Admitted As Inpatient 67 Condition: fair Clinical Impression: CHF (congestive heart failure) Qualifiers: Congestive heart failure type: unspecified congestive heart failure type Congestive heart failure chronicity: acute Qualified Code(s): I50.9 - Heart failure, unspecified - Discharge Information Instructions: Heart Failure, [id number] Forms: ED Department Discharge Care Plan Goals: Discussed the examination, lab, EKG and x-ray results with Dr. Trejo. Dr. Trejo accepted the patient for continued evaluation and management as an inpatient. - My Orders Last 24 Hours: My Active Orders 08/03/16 17:22 RT Aerosol Therapy [RC] ASDIRECTED 08/03/16 17:24 CULTURE BLOOD [BC] Stat 08/03/16 18:27 EKG Documentation Completion [RC] URGENT - Assessment/Plan Last 24 Hours: My Active Orders 08/03/16 17:22 RT Aerosol Therapy [RC] ASDIRECTED 08/03/16 17:24 CULTURE BLOOD [BC] Stat 08/03/16 18:27 EKG Documentation Completion [RC] URGENT }
[2016-08-03] MEDS ORDERED: Albuterol/Ipratropium 3.0-0.5 MG/3 ML Neb Soln ONE (17:21)
[2016-08-03] MEDS ORDERED: Albuterol/Ipratropium 3.0-0.5 MG/3 ML Neb Soln NEB ONE (17:22)
--- NOTE | 2016-08-03 17:50 | CR ---
{null, Clinical history: 70-year-old female with cough and shortness of breath. Interpretation: Abnormal. Chronic borderline cardiomegaly, generalized relative increased pulmonary venous congestion since to June 2016 exam and reproducible bibasilar dependent pleural effusions all characteristic of cardio vascular decompensation (CHF). No new lung mass, hilar lymphadenopathy or focal lobar pneumonia. Old healed fracture deformity mid right clavicle. No pneumothorax. CONCLUSION: CHF. }
[2016-08-03] MEDS ORDERED: Furosemide 40 MG/4 ML VIAL IVPUSH ONE (18:10)
[2016-08-03] MEDS ORDERED: Ondansetron 4 MG/2 ML SDV IVPUSH PRN (19:11)
[2016-08-03] MEDS ORDERED: Morphine 2 MG/ML Syringe IVPUSH PRN (19:11)
[2016-08-03] MEDS ORDERED: Polyethylene Glycol 3350 Powder 17 GM Packet PO PRN (19:11)
[2016-08-03] MEDS ORDERED: Zolpidem 5 MG Tab PO PRN (19:11)
[2016-08-03] MEDS ORDERED: Docusate Sodium 100 MG Cap PO PRN (19:11)
[2016-08-03] MEDS ORDERED: Acetaminophen 325 MG Tab PO PRN (19:11)
[2016-08-03] MEDS ORDERED: Albuterol/Ipratropium 3.0-0.5 MG/3 ML Neb Soln NEB PRN (19:11)
[2016-08-03] MEDS ORDERED: Albuterol 0.083% 2.5 MG/3 ML Neb Soln NEB PRN (19:11)
[2016-08-03] MEDS ORDERED: Moxifloxacin 0.5% Ophth Soln 3 ML Bottle EYEBOTH SCH (19:30)
--- NOTE | 2016-08-03 19:36 | PCM.HP ---
{null, H&P History of Present Illness - General Date of Service: 08/03/16 Admit Problem/Dx: Admission Diagnosis/Problem Admission Diagnosis/Problem CHF, Congestive heart failure Source of Information: Patient History Limitations: Reports: No Limitations - History of Present Illness Initial Comments - Free Text/Narative: 70-year-old female was sent as with a history of essential hypertension, diabetes mellitus type 2, hypothyroidism, recent eye Lasik surgery presented to emergency room with worsening shortness of breath that she had for 2 weeks. she started having cough yesterday. She admitted to having mild orthopnea. she gained about 6 pounds since last admission. Did not take her Lasix as supposed to. hospital she was admitted for pneumonia and possible congestive heart failure. At that time she was found to have component of bilateral pleural effusion she responded to Lasix. On that admission her d-dimer was elevated so CT chest with contrast was done and was negative for thrombosis. Also lower extremities Doppler was negative for DVT this time she denies fever, chills, chest pain, pedal edema, nausea, vomiting, abdominal pain, dysuria, headache. he admits Urinary frequency. In the emergency room her chest x-ray is consistent with CHF and bilateral pleural effusion. WBC 8.8. Hemoglobin 9.5.sodium 136. Potassium 4.1. Creatinine 1.0. BUN 16. Lactic acid 1.2. LFTs normal. Troponin 0.03. BNP 674.albumin 3.7. Blood port seen 6.9. She received IV Lasix 40 mg once in the emergency room. she also received DuoNeb. Patient stated that her blood glucose was 48 this morning after taking her levemir. her admission blood glucose is 90 - Related Data Allergies/Adverse Reactions: Allergies Allergy/AdvReac Type Severity Reaction Status Date / Time No Known Allergies Allergy Verified 07/14/16 09:43 Home Medications: Home Meds Aspirin [Halfprin] 81 mg PO DAILY 09/18/14 [History] Calcium Carbonate/Vitamin D3 [Calcium 500-Vit D3 200 Caplet] 1 tab PO DAILY 04/04 [History] Insulin Aspart [Novolog Flexpen] 9 unit SUBCUT TID 09/18/14 [History] Levothyroxine 125 mcg PO DAILY 09/18/14 [History] Lisinopril 10 mg PO DAILY 09/18/14 [History] Multivitamin with Minerals [Multiple Vitamin] 1 tab PO DAILY 09/18/14 [History] sitaGLIPtin Phos/Metformin HCl [Janumet 50-500 MG] 1 tab PO BIDMEALS 09/18/14 [ History] Insulin Detemir [Levemir] 56 unit SUBCUT DAILY@0800 07/13/16 [History] Ketorolac [Acular 0.5% Ophth Soln] 1 drop EYEBOTH ASDIRECTED 07/13/16 [History] Moxifloxacin [Vigamox 0.5% Ophth Soln] 1 drop EYEBOTH ASDIRECTED 07/13/16 [ History] prednisoLONE Acetate [Prednisolone Acetate] 1 drop EYEBOTH ASDIRECTED 07/13/16 [ History] Past Medical History HEENT History: Reports: Cataract, Impaired Vision Cardiovascular History: Reports: Hypertension, Other (See Below) Other Cardiovascular History: HYPERLIPIDEMIA Respiratory History: Reports: Bronchitis, Recurrent Gastrointestinal History: Reports: Other (See Below) Other Gastrointestinal History: positive hemoccult Genitourinary History: Reports: None 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 Endocrine/Metabolic History: Reports: Diabetes, Type II, Hypothyroidism Other Endocrine/Metabolic History: HYPOTHYRIODISM Hematologic History: Reports: None Immunologic History: Reports: Other (See Below) Other Immunologic History: MRSA Oncologic (Cancer) History: Reports: None Dermatologic History: Reports: Other (See Below) Other Dermatologic History: CYST REMOVAL BREAST - Infectious Disease History Infectious Disease History: Reports: Chicken Pox, Measles, Mumps, Rubella - Past Surgical History Head Surgeries/Procedures: Reports: None HEENT Surgical History: Reports: Cataract Surgery Female Surgical History: Reports: Tubal Ligation Other Oncologic Surgeries/Procedures: non-cancerous cyst removed from right breast Social & Family History - Family History Cardiac: Reports: CAD, [place] Neurological: Reports: CVA Endocrine/Metabolic: Reports: Other (See Below) Other Endocrine/Metabolic Family History: Diabetes. Type unknown Oncologic: Reports: Breast - Tobacco Use Smoking Status *Q: Never Smoker Second Hand Smoke Exposure: Yes - Caffeine Use Caffeine Use: Reports: Soda, Tea - Alcohol Use Days Per Week of Alcohol Use: 0 - Recreational Drug Use Recreational Drug Use: No H&P Review of Systems - Review of Systems: Review Of Systems: See Below General: Reports: Fatigue, Weight Gain. Denies: Fever, Chills, Night Sweats, Diaphoresis, Decreased Appetite HEENT: Reports: No Symptoms Pulmonary: Reports: Shortness of Breath, Cough. Denies: Wheezing, Pleuritic Chest Pain, Hemoptysis Cardiovascular: Reports: Dyspnea on Exertion, Orthopnea. Denies: Chest Pain, Palpitations, PND, Edema, Lightheadedness, Syncope, Claudication, Blood Pressure Problem Gastrointestinal: Reports: No Symptoms Genitourinary: Denies: Dysuria, Burning, Pain, Urgency, Incontinence Musculoskeletal: Reports: No Symptoms Skin: Reports: No Symptoms Psychiatric: Reports: No Symptoms Neurological: Reports: No Symptoms Hematologic/Lymphatic: Reports: No Symptoms Immunologic: Reports: No Symptoms Exam - Exam Exam: See Below - Vital Signs Vital Signs: Last Vital Signs Temp 37.3 C 08/03/16 16:50 Pulse 100 08/03/16 16:50 Resp 16 08/03/16 16:50 BP 126/68 08/03/16 16:50 Pulse Ox 98 08/03/16 16:50 Weight: 88.904 kg - Exam General: Alert, Oriented, Cooperative, Mild Distress (due to shortness of breath ). No: Moderate Distress, Severe Distress, Sedated, Lethargic, Obtunded HEENT: Conjunctiva Clear, EACs Clear, EOMI, Hearing Intact, Mucosa Moist & Jeff , Nares Patent, Normal Nasal Septum, Posterior Pharynx Clear, Pupils Equal, Pupils Reactive, TMs Clear Neck: Supple, Trachea Midline Lungs: Decreased Breath Sounds (in bases), Crackles (in bases), Rhonchi. No: Rub, Stridor, Wheezing Cardiovascular: Regular Rate, Regular Rhythm, Normal S1, Normal S2. No: Gallop/ S3, Gallop/S4 Abdomen: Normal Bowel Sounds, Soft, Pelvis Stable. No: Distention, Guarding, Rigidity, Rebound (Female) Exam: Deferred Rectal (Female) Exam: Deferred Back Exam: Normal Inspection, Full Range of Motion Extremities: Normal Pulses, Edema (+1 bilateral lower extremities edema). No: Clubbing, Cyanosis, Calf Tenderness, Cool Skin: Warm, Dry, Intact Neurological: Cranial Nerves Intact, Reflexes Equal Bilateral Neuro Extensive - Mental Status: Alert, Oriented x3, Normal Mood/Affect, Normal Cognition, Memory Intact Neuro Extensive - Motor, Sensory, Reflexes: CN II-XII Intact, Normal Reflexes. No: Abnormal Motor Psychiatric: Alert, Normal Affect, Normal Mood - Patient Data Result Diagrams: 08/03/16 17:24 08/03/16 17:24 *Q Meaningful Use (ADM) - VTE *Q VTE Criteria *Q: - Stroke *Q Stroke Criteria *Q: - AMI *Q AMI Criteria *Q: - Problem List (1) Acute on chronic congestive heart failure SNOMED Code(s): 32039545 ICD Code: I50.9 - HEART FAILURE, UNSPECIFIED Status: Acute Priority: High Current Visit: Yes (2) Bronchitis SNOMED Code(s): 11888399 ICD Code: J40 - BRONCHITIS, NOT SPECIFIED ACUTE OR CHRONIC Status: Acute Priority: Medium Current Visit: No Onset Date: 10/19/14 (3) Diabetes mellitus SNOMED Code(s): 21898905 ICD Code: E11.9 - TYPE 2 DIABETES MELLITUS WITHOUT COMPLICATIONS Status: Chronic Current Visit: No (4) Pleural effusion SNOMED Code(s): 19395166 ICD Code: J90 - PLEURAL EFFUSION, NOT ELSEWHERE CLASSIFIED Status: Chronic Current Visit: No (5) Essential hypertension SNOMED Code(s): 11435311 ICD Code: I10 - ESSENTIAL (PRIMARY) HYPERTENSION Status: Chronic Current Visit: No (6) Hypothyroidism SNOMED Code(s): 78949935 ICD Code: E03.9 - HYPOTHYROIDISM, UNSPECIFIED Status: Chronic Current Visit: No Problem List Initiated/Reviewed/Updated: Yes Orders Last 24hrs: Active Orders 24 hr Category Date Time Status Accu Check [Blood Glucose Check, Bedside] [] Care 08/03/16 19:22 Active QIDACANDBED Echo Comp wo Cont [US] Routine Exams 08/03/16 19:24 Ordered TSH ULTRASENSITIVE [CHEM] AM Lab 08/04/16 05:11 Ordered Aspirin [Halfprin] Med 08/04/16 09:00 Ordered 81 mg PO DAILY Calcium Carbonate/Vitamin D3 [Calcium Carbonate/Vitamin Med 08/04/16 09:00 Ordered D 1250 MG-200 Unit] 1 tab PO DAILY Insulin Aspart [NovoLOG] Med 08/03/16 21:00 Ordered 9 unit SUBCUT TID Insulin Aspart [NovoLOG] Med 08/03/16 21:00 Ordered See Protocol SUBCUT QIDACANDBED Insulin Detemir [Levemir] Med 08/04/16 08:00 Ordered 56 unit SUBCUT DAILY@0800 Ketorolac Med 08/03/16 19:30 Ordered 1 drop EYEBOTH ASDIRECTED Levofloxacin/Dextrose 5%-Water [Levaquin in D5W 750 MG/ Med 08/03/16 19:30 Ordered 150 ML] 750 mg Premix Bag 1 bag IV Q24H Levothyroxine Med 08/04/16 09:00 Ordered 125 mcg PO DAILY Lisinopril [Prinivil] Med 08/04/16 09:00 Ordered 10 mg PO DAILY Moxifloxacin [Vigamox 0.5% Ophth Soln] Med 08/03/16 19:30 Ordered DOSE ml EYEBOTH ASDIRECTED Multivitamin with Minerals [Multiple Vitamin] Med 08/04/16 09:00 Ordered 1 tab PO DAILY Potassium Chloride [Klor-Con 10] Med 08/03/16 23:00 Once 20 meq PO ONETIME ONE prednisoLONE Acetate [Pred Forte 1% Ophth Susp] Med 08/03/16 19:30 Ordered DOSE ml EYEBOTH ASDIRECTED sitaGLIPtin Phos/Metformin HCl [Janumet 50-500 MG] Med 08/04/16 08:00 Ordered 1 tab PO BIDMEALS Medication Orders Acetaminophen (Tylenol) 650 mg PO Q4H PRN PRN Reason: Pain (Mild 1-3)/fever Albuterol (Proventil Neb Soln) 2.5 mg NEB Q2H PRN PRN Reason: shortness of breath/wheezing Albuterol/Ipratropium (Duoneb 3.0-0.5 Mg/3 Ml) 3 ml NEB Q6H PRN PRN Reason: shortness of breath/wheezing Aspirin (Halfprin) 81 mg PO DAILY [facility]LA[facility] Calcium Carbonate (Calcium Carbonate/Vitamin D 1250 Mg-200 Unit) 1 tab PO DAILY [facility] Docusate Sodium (Colace) 100 mg PO BID PRN PRN Reason: Constipation Enoxaparin Sodium (Lovenox) 40 mg SUBCUT DAILY [facility] Furosemide (Lasix) 20 mg IVPUSH Q8H [facility]IA Stop: 08/04/16 08:00 Levofloxacin/Dextrose 750 mg/ (Premix) 150 mls @ 100 mls/hr IV Q24H [facility] Insulin Aspart (Novolog) 0 unit SUBCUT QIDACANDBED [facility] PRN Reason: Protocol Insulin Aspart (Novolog) 9 unit SUBCUT TID [facility] Insulin Detemir (Levemir) 56 unit SUBCUT DAILY@0800 [facility] Levothyroxine Sodium (Levothyroxine) 125 mcg PO DAILY [facility] Lisinopril (Prinivil) 10 mg PO DAILY [facility] Morphine Sulfate (Morphine) 2 mg IVPUSH Q2H PRN PRN Reason: Pain (severe 7-10) Moxifloxacin HCl (Vigamox 0.5% Oph Soln) ml EYEBOTH ASDIRECTED [facility] Non-Formulary Medication (Ketorolac) 1 drop EYEBOTH ASDIRECTED [facility] Non-Formulary Medication (Multivitamin With Minerals [Multiple Vitamin]) 1 tab PO DAILY [facility] Non-Formulary Medication (Sitagliptin Phos/Metformin Hcl [Janumet 50-500 Mg]) 1 tab PO BIDMEALS [facility] Ondansetron HCl (Zofran) 4 mg IVPUSH Q6H PRN PRN Reason: Nausea/Vomiting Polyethylene Glycol (Miralax) 17 gm PO DAILY PRN PRN Reason: Constipation Potassium Chloride (Klor-Con 10) 20 meq PO ONETIME ONE Stop: 08/03/16 23:01 Prednisolone Acetate (Pred Forte 1% Oph Susp) ml EYEBOTH ASDIRECTED [facility] Sodium Chloride (Saline Flush) 10 ml FLUSH ASDIRECTED PRN PRN Reason: Keep Vein Open Zolpidem Tartrate (Ambien) 5 mg PO BEDTIME PRN PRN Reason: Sleep Assessment/Plan Comment:: Acute on chronic congestive heart failure chest x-ray and BNP are consistent with congestive heart failure She received Lasix 40 mg IV once in the emergency room -Continue Lasix 20 mg IV every 8 hours for ulcer produces and reassess -Echocardiogram ordered -Patient was advised that she needs to take her medications especially Lasix as after being discharged and further medical advice and follow with pet sitter after discharge Possible bronchitis emperical Levaquin Duoneb 6 hours Bilateral pleural effusion, chronic Possibly from congestive heart failure Treat congestive heart failure as above Patient was advised to address that with her primary care provider and see pet sitter Hypoglycemia Patient stated that her blood glucose was 48 this morning after taking her levemir. her admission blood glucose is 90 -Stop her scheduled NovoLog -Stop Sitagliptin due to congestive heart failure Diabetes mellitus type II continue his metformin Start sliding scale insulin Stop Sitagliptin as it can cause fluid retention which is not good with congestive heart failure -stop her schedule NovoLog to 2 hypoglycemia -Start on glipizide 5 mg p.o. b.i.d. tomorrow if blood glucose level allows Recent LASER eye surgery continue with her home eyedrops medications chronic hypothyroidism Continue Synthroid Essential hypertension Continue lisinopril she wants to be full code Lovenox for DVT prophylaxis }
[2016-08-03] MEDS: Levofloxacin/Dextrose 5%-Water 750 MG in Premix Bag 1 BAG IV SCH (20:57)
[2016-08-03] MEDS: metFORMIN 500 MG Tab PO SCH (20:58)
[2016-08-03] MEDS: Sodium Chloride 0.9% 10 ML Syringe FLUSH PRN ×2 (20:58→22:34)
[2016-08-03] MEDS ORDERED: glipiZIDE 5 MG Tab.ER PO SCH (21:00)
[2016-08-03] MEDS ORDERED: Insulin Aspart 100 Units/ML 3 ML Pen SUBCUT SCH (21:00)
[2016-08-03] MEDS: Insulin Aspart 100 Units/ML 3 ML Pen SUBCUT SCH (21:10)
[2016-08-03] MEDS ORDERED: Potassium Chloride 10 MEQ Tab.ER PO ONE (23:00)
[2016-08-04] MEDS: Furosemide 20 MG/2 ML VIAL IVPUSH SCH ×2 (00:01→08:27)
[2016-08-04] MEDS: Sodium Chloride 0.9% 10 ML Syringe FLUSH PRN ×3 (00:01→18:55)
[2016-08-04] MEDS: Codeine/guaiFENesin 100-10 MG/5 ML Syrup 5 ML Cup PO PRN (01:46)
[2016-08-04] MEDS: Levothyroxine 125 MCG Tab PO SCH (05:46)
[2016-08-04] MEDS ORDERED: Non-Formulary Medication 1 Each (Sitagliptin Phos/Metformin Hcl [Janumet 50-500 Mg] 1 TAB) PO SCH (08:00)
[2016-08-04] MEDS: Insulin Aspart 100 Units/ML 3 ML Pen SUBCUT SCH ×4 (08:24→22:17)
[2016-08-04] MEDS: Multivitamins, Therapeutic with Minerals Tab PO SCH (08:25)
[2016-08-04] MEDS: metFORMIN 500 MG Tab PO SCH ×2 (08:25→17:38)
[2016-08-04] MEDS: Calcium Carbonate/Vitamin D3 1250 MG-200 Unit Tab PO SCH (08:26)
[2016-08-04] MEDS: Lisinopril 10 MG Tab PO SCH (08:26)
[2016-08-04] MEDS: Aspirin 81 MG Tab.EC PO SCH (08:26)
[2016-08-04] MEDS: Insulin Detemir 100 Units/ML 3 ML Pen SUBCUT SCH (08:28)
[2016-08-04] MEDS: Enoxaparin 40 MG/0.4 ML Syringe SUBCUT SCH (08:30)
--- NOTE | 2016-08-04 10:45 | PCM.PN ---
{null, - General Info Date of Service: 08/04/16 Admission Dx/Problem (Free Text): Admission Diagnosis/Problem Admission Diagnosis/Problem CHF, Congestive heart failure Subjective Update: patient stated that she is feeling better. She denies shortness of breath while in bed. her cough was bad at night but improved with medications. she denies fever, chills, nausea, vomiting, chest pain, but nothing - Patient Data Vitals - most recent: Last Vital Signs Temp 35.9 C 08/04/16 07:00 Pulse 85 08/04/16 07:00 Resp 20 08/04/16 07:00 BP 105/46 L 08/04/16 08:26 Pulse Ox 94 L 08/04/16 07:00 Weight - most recent: 85.332 kg I&O - last 24 hours: Intake & Output 08/03/16 08/04/16 08/04/16 22:59 06:59 14:59 Intake Total 288 350 Output Total 1800 1750 Balance -1512 -1400 Lab Results last 24 hrs: Laboratory Results - last 24 hr 08/03/16 08/03/16 08/04/16 Range/Units 19:48 20:59 06:05 WBC 7.0 (5.0-10.0) 10^3/uL RBC 3.65 L (4.2-5.4) 10^6/uL Hgb 9.4 L (12.0-16.0) g/dL Hct 31.1 L (37.0-47.0) % MCV 85.2 (80-100) fL MCH 25.8 L (27.0-34.0) pg MCHC 30.2 L (33.0-35.0) g/dL Plt Count 193 (150-450) 10^3/uL Neut % (Auto) 77.9 H (42.2-75.2) % Lymph % (Auto) 13.0 L (20.5-50.1) % [place] % (Auto) 7.4 (2-8) % Eos % (Auto) 1.4 (1.0-3.0) % Baso % (Auto) 0.3 (0.0-1.0) % Sodium (135-145) mmol/L Potassium (3.6-5.0) mmol/L Chloride (101-111) mmol/L Carbon Dioxide (21.0-31.0) mmol/L Anion Gap BUN (7-18) mg/dL Creatinine (0.6-1.3) mg/dL Est Cr Clr Drug Dosing mL/min Estimated GFR (MDRD) Glucose (74-105) mg/dL POC Glucose 113 H (70-105) mg/dl Calcium (8.4-10.2) mg/dl Magnesium (1.8-2.5) mg/dL Troponin I (0.00-0.02) ng/ml TSH, Ultra Sensitive (0.35-7.0) uIu/mL Urine Color Light yellow (YELLOW) Urine Appearance Clear (CLEAR) Urine pH 7.0 (5.0-9.0) Ur Specific [place] 1.010 (1.005-1.030) Urine Protein Negative (NEGATIVE) Urine Glucose (UA) Negative (NEGATIVE) Urine Ketones Negative (NEGATIVE) Urine Occult Blood Trace-intact H (NEGATIVE) Urine Nitrite Negative (NEGATIVE) Urine Bilirubin Negative (NEGATIVE) Urine Urobilinogen 0.2 (0.2-1.0) mg/dL Ur Leukocyte Esterase Trace H (NEGATIVE) Urine RBC 0-5 /HPF Urine WBC 0-5 (0-5/HPF) /HPF Ur Epithelial Cells Rare /HPF Urine Bacteria Rare (0-FEW/HPF) /HPF 08/04/16 08/04/16 08/04/16 Range/Units 06:05 06:05 07:35 WBC (5.0-10.0) 10^3/uL RBC (4.2-5.4) 10^6/uL Hgb (12.0-16.0) g/dL Hct (37.0-47.0) % MCV (80-100) fL MCH (27.0-34.0) pg MCHC (33.0-35.0) g/dL Plt Count (150-450) 10^3/uL Neut % (Auto) (42.2-75.2) % Lymph % (Auto) (20.5-50.1) % [place] % (Auto) (2-8) % Eos % (Auto) (1.0-3.0) % Baso % (Auto) (0.0-1.0) % Sodium 134 L (135-145) mmol/L Potassium 4.0 (3.6-5.0) mmol/L Chloride 99 L (101-111) mmol/L Carbon Dioxide 27.0 (21.0-31.0) mmol/L Anion Gap 12.0 BUN 16 (7-18) mg/dL Creatinine 1.0 (0.6-1.3) mg/dL Est Cr Clr Drug Dosing 43.92 mL/min Estimated GFR (MDRD) 55 Glucose 174 H (74-105) mg/dL POC Glucose 199 H (70-105) mg/dl Calcium 8.5 (8.4-10.2) mg/dl Magnesium 1.7 L (1.8-2.5) mg/dL Troponin I 0.03 H* (0.00-0.02) ng/ml TSH, Ultra Sensitive 6.39 (0.35-7.0) uIu/mL Urine Color (YELLOW) Urine Appearance (CLEAR) Urine pH (5.0-9.0) Ur Specific [place] (1.005-1.030) Urine Protein (NEGATIVE) Urine Glucose (UA) (NEGATIVE) Urine Ketones (NEGATIVE) Urine Occult Blood (NEGATIVE) Urine Nitrite (NEGATIVE) Urine Bilirubin (NEGATIVE) Urine Urobilinogen (0.2-1.0) mg/dL Ur Leukocyte Esterase (NEGATIVE) Urine RBC /HPF Urine WBC (0-5/HPF) /HPF Ur Epithelial Cells /HPF Urine Bacteria (0-FEW/HPF) /HPF Med Orders - Current: Current Medications Acetaminophen (Tylenol) 650 mg PO Q4H PRN PRN Reason: Pain (Mild 1-3)/fever Albuterol (Proventil Neb Soln) 2.5 mg NEB Q2H PRN PRN Reason: shortness of breath/wheezing Albuterol/Ipratropium (Duoneb 3.0-0.5 Mg/3 Ml) 3 ml NEB Q6H PRN PRN Reason: shortness of breath/wheezing Aspirin (Halfprin) 81 mg PO DAILY [facility] Last Admin: 08/04/16 08:26 Dose: 81 mg Calcium Carbonate (Calcium Carbonate/Vitamin D 1250 Mg-200 Unit) 1 tab PO DAILY [facility] Last Admin: 08/04/16 08:26 Dose: 1 tab Docusate Sodium (Colace) 100 mg PO BID PRN PRN Reason: Constipation Enoxaparin Sodium (Lovenox) 40 mg SUBCUT DAILY [facility] Last Admin: 08/04/16 08:30 Dose: 40 mg Guaifenesin/Codeine Phosphate (Robitussin Ac) 10 ml PO Q6H PRN PRN Reason: Cough Last Admin: 08/04/16 01:46 Dose: 10 ml Levofloxacin/Dextrose 750 mg/ (Premix) 150 mls @ 100 mls/hr IV Q24H [facility] Last Infusion: 08/03/16 22:35 Dose: Infused Insulin Aspart (Novolog) 0 unit SUBCUT QIDACANDBED [facility] PRN Reason: Protocol Last Admin: 08/04/16 08:24 Dose: 2 units Insulin Detemir (Levemir) 56 unit SUBCUT DAILY@0800 [facility] Last Admin: 08/04/16 08:28 Dose: 56 units Levothyroxine Sodium (Levothyroxine) 125 mcg PO ACBREAKFAST [facility] Last Admin: 08/04/16 05:46 Dose: 125 mcg Lisinopril (Prinivil) 10 mg PO DAILY [facility] Last Admin: 08/04/16 08:26 Dose: 10 mg Metformin HCl (Glucophage) 1,000 mg PO BIDMEALS [facility] Last Admin: 08/04/16 08:25 Dose: 1,000 mg Morphine Sulfate (Morphine) 2 mg IVPUSH Q2H PRN PRN Reason: Pain (severe 7-10) Moxifloxacin HCl (Vigamox 0.5% Oph Soln) ml EYEBOTH ASDIRECTED [facility] Multivitamins/Minerals (Vitamins And Minerals) 1 tab PO DAILY [facility] Last Admin: 08/04/16 08:25 Dose: 1 tab Non-Formulary Medication (Ketorolac) 1 drop EYEBOTH ASDIRECTED [facility] Ondansetron HCl (Zofran) 4 mg IVPUSH Q6H PRN PRN Reason: Nausea/Vomiting Polyethylene Glycol (Miralax) 17 gm PO DAILY PRN PRN Reason: Constipation Prednisolone Acetate (Pred Forte 1% Oph Susp) ml EYEBOTH ASDIRECTED [facility] Sodium Chloride (Saline Flush) 10 ml FLUSH ASDIRECTED PRN PRN Reason: Keep Vein Open Last Admin: 08/04/16 08:31 Dose: 10 ml Zolpidem Tartrate (Ambien) 5 mg PO BEDTIME PRN PRN Reason: Sleep Discontinued Medications Albuterol/Ipratropium (Duoneb 3.0-0.5 Mg/3 Ml) 3 ml NEB ONETIME ONE Stop: 08/03/16 17:23 Last Admin: 08/03/16 17:25 Dose: 3 ml Albuterol/Ipratropium (Duoneb 3.0-0.5 Mg/3 Ml) Confirm Administered Dose 3 ml .ROUTE .STK-MED ONE Stop: 08/03/16 17:22 Last Admin: 08/03/16 17:23 Dose: Not Given Furosemide (Lasix) 40 mg IVPUSH NOW ONE Stop: 08/03/16 18:11 Last Admin: 08/03/16 18:31 Dose: 40 mg Furosemide (Lasix) 20 mg IVPUSH Q8H [facility]LAVIA Stop: 08/04/16 08:01 Last Admin: 08/04/16 08:27 Dose: 20 mg Glipizide (Glucotrol Xl) 5 mg PO BIDDIURETIC [facility] Insulin Aspart (Novolog) 9 unit SUBCUT TID [facility] Non-Formulary Medication (Sitagliptin Phos/Metformin Hcl [Janumet 50-500 Mg]) 1 tab PO BIDMEALS [facility]LA[facility]IA Potassium Chloride (Klor-Con 10) 20 meq PO ONETIME ONE Stop: 08/03/16 23:01 Last Admin: 08/03/16 22:34 Dose: 20 meq - Exam General: alert, oriented, cooperative, no acute distress, other (she looks better). No: moderate distress, severe distress, sedated, lethargic, obtunded HEENT: Pupils equal, Pupils reactive, EOMI, Mucous membr. moist/pink Neck: supple, trachea midline, no JVD Lungs: Normal respiratory effort, Decreased breath sounds (in bases). No: Rhonchi, Rub, Stridor Cardiovascular: Regular Rate, Regular Rhythm Abdomen: bowel sounds present, soft, no tenderness, no distension (Female) Exam: Deferred Back Exam: Normal Inspection, Full Range of Motion Extremities: normal pulses, no tenderness/swelling, no clubbing, no cyanosis, no calf tenderness, edema (improved lower extremity edema) Skin: warm, dry, intact Neurological: no new focal deficit Psy/Mental Status: alert, normal affect, normal mood - Problem List & Annotations (1) Acute on chronic congestive heart failure SNOMED Code(s): 50905561 Code(s): I50.9 - HEART FAILURE, UNSPECIFIED Status: Acute Priority: High Current Visit: Yes (2) Bronchitis SNOMED Code(s): 07149297 Code(s): J40 - BRONCHITIS, NOT SPECIFIED ACUTE OR CHRONIC Status: Acute Priority: Medium Current Visit: No Onset Date: 10/19/14 (3) Diabetes mellitus SNOMED Code(s): 25302096 Code(s): E11.9 - TYPE 2 DIABETES MELLITUS WITHOUT COMPLICATIONS Status: Chronic Current Visit: No (4) Pleural effusion SNOMED Code(s): 08781664 Code(s): J90 - PLEURAL EFFUSION, NOT ELSEWHERE CLASSIFIED Status: Chronic Current Visit: No (5) Essential hypertension SNOMED Code(s): 57605116 Code(s): I10 - ESSENTIAL (PRIMARY) HYPERTENSION Status: Chronic Current Visit: No (6) Hypothyroidism SNOMED Code(s): 21932385 Code(s): E03.9 - HYPOTHYROIDISM, UNSPECIFIED Status: Chronic Current Visit: No - Problem List Review Problem List Initiated/Reviewed/Updated: Yes - My Orders Last 24 Hours: My Active Orders 08/03/16 19:00 Levofloxacin/Dextrose 5%-Water [Levaquin in D5W 750 MG/150 ML] 750 mg Premix Bag 1 bag IV Q24H 08/03/16 19:22 Accu Check [Blood Glucose Check, Bedside] [RC] QIDACANDBED 08/03/16 19:30 Ketorolac 1 drop EYEBOTH ASDIRECTED Moxifloxacin [Vigamox 0.5% Ophth Soln] DOSE ml EYEBOTH ASDIRECTED prednisoLONE Acetate [Pred Forte 1% Ophth Susp] DOSE ml EYEBOTH ASDIRECTED 08/03/16 21:00 Insulin Aspart [NovoLOG] See Protocol SUBCUT QIDACANDBED metFORMIN [Glucophage] 1,000 mg PO BIDMEALS 08/04/16 01:29 Codeine/guaiFENesin [Robitussin AC] 10 ml PO Q6H PRN 08/04/16 06:00 Levothyroxine 125 mcg PO ACBREAKFAST 08/04/16 08:00 Insulin Detemir [Levemir] 56 unit SUBCUT DAILY@0800 08/04/16 08:18 OCCULT BLOOD DIAGNOSTIC [OP] Routine 08/04/16 09:00 Echo Comp wo Cont [US] Routine Aspirin [Halfprin] 81 mg PO DAILY Calcium Carbonate/Vitamin D3 [Calcium Carbonate/Vitamin D 1250 MG-200 Unit] 1 tab PO DAILY Lisinopril [Prinivil] 10 mg PO DAILY Multivitamins/Minerals [Vitamins and Minerals] 1 tab PO DAILY 08/05/16 05:11 B-TYPE NATRIURETIC PEPTIDE,BNP [CHEM] AM BASIC METABOLIC PANEL,BMP [CHEM] AM CBC WITH AUTO DIFF [HEME] AM - Plan Plan:: Acute on chronic congestive heart failure chest x-ray and BNP are consistent with congestive heart failure She received Lasix 40 mg IV once in the emergency room -Continue Lasix 20 mg po every 8 hours -Echocardiogram ordered -Patient was advised that she needs to take her medications especially Lasix as after being discharged and further medical advice and follow with internal combustion engine inspector after discharge Possible bronchitis emperical Levaquin Duoneb 6 hours Bilateral pleural effusion, chronic Possibly from congestive heart failure Treat congestive heart failure as above Patient was advised to address that with her primary care provider and see internal combustion engine inspector Hypoglycemia Patient stated that her blood glucose was 48 this morning after taking her levemir. her admission blood glucose is 90 -Stop her scheduled NovoLog -Stop Sitagliptin due to congestive heart failure Diabetes mellitus type II continue his metformin Start sliding scale insulin Stop Sitagliptin as it can cause fluid retention which is not good with congestive heart failure -stop her schedule NovoLog due to hypoglycemia -Start on glipizide 5 mg p.o. b.i.d. tomorrow if blood glucose level allows Recent LASER eye surgery continue with her home eyedrops medications chronic hypothyroidism Continue Synthroid Essential hypertension Continue lisinopril she wants to be full code Lovenox for DVT prophylaxis }
--- NOTE | 2016-08-04 11:53 | EKG ---
{null, 08/03/2016 - ROBBY MONIQUE I reviewed the EKG and agree with the machine reading. [facility] /[id number] }
[2016-08-04] MEDS: Albuterol/Ipratropium 3.0-0.5 MG/3 ML Neb Soln NEB SCH ×3 (13:49→18:25)
[2016-08-04] MEDS: KETOROLAC 0.5% EYELF SCH ×2 (14:02→22:19)
[2016-08-04] MEDS: PREDNISOLONE ACETATE 1% EYELF SCH ×3 (14:03→22:21)
[2016-08-04] MEDS: Furosemide 20 MG Tab PO SCH ×2 (14:04→22:24)
[2016-08-04] MEDS: Levofloxacin/Dextrose 5%-Water 750 MG in Premix Bag 1 BAG IV SCH (18:54)
[2016-08-05] MEDS: Albuterol/Ipratropium 3.0-0.5 MG/3 ML Neb Soln NEB SCH ×4 (01:19→18:42)
[2016-08-05] MEDS: Levothyroxine 125 MCG Tab PO SCH (06:35)
[2016-08-05] MEDS: Furosemide 20 MG Tab PO SCH (06:35)
[2016-08-05] MEDS: Insulin Aspart 100 Units/ML 3 ML Pen SUBCUT SCH ×4 (09:03→21:53)
[2016-08-05] MEDS: Insulin Detemir 100 Units/ML 3 ML Pen SUBCUT SCH (09:04)
[2016-08-05] MEDS: Enoxaparin 40 MG/0.4 ML Syringe SUBCUT SCH (09:05)
[2016-08-05] MEDS: metFORMIN 500 MG Tab PO SCH (09:06)
[2016-08-05] MEDS: Lisinopril 10 MG Tab PO SCH (09:06)
[2016-08-05] MEDS: Aspirin 81 MG Tab.EC PO SCH (09:07)
[2016-08-05] MEDS: Calcium Carbonate/Vitamin D3 1250 MG-200 Unit Tab PO SCH (09:07)
[2016-08-05] MEDS: Multivitamins, Therapeutic with Minerals Tab PO SCH (09:07)
[2016-08-05] MEDS: KETOROLAC 0.5% EYELF SCH ×2 (09:09→11:48)
[2016-08-05] MEDS: PREDNISOLONE ACETATE 1% EYELF SCH ×2 (09:11→11:48)
[2016-08-05] MEDS ORDERED: KETOROLAC 0.5% EYERT SCH (09:26)
[2016-08-05] MEDS ORDERED: PREDNISOLONE ACETATE 1% EYERT SCH (09:27)
[2016-08-05] MEDS: KETOROLAC 0.5% EYERT SCH ×2 (09:58→21:55)
[2016-08-05] MEDS: PREDNISOLONE ACETATE 1% EYERT SCH ×4 (09:59→21:56)
[2016-08-05] MEDS: Metoprolol Tartrate 25 MG Tab PO SCH ×2 (14:56→22:03)
--- NOTE | 2016-08-05 15:03 | PN ---
{null, DATE: 08/05/2016 SUBJECTIVE: Mrs. Orlin Weiss is a 70-year-old female with medical history significant for hypertension and hyperlipidemia who was admitted to the hospital with complaints of increasing shortness of breath and was noted to be in acute on chronic congestive heart failure with elevated BNP and chest x-ray suggestive of congestion. The patient was started on IV Lasix. For the past 24 hours, the patient says that the Lasix has helped her to breathe better. She denies any chest pain. No abdominal pain. No nausea. No vomiting. No diarrhea. She continues to have low blood pressure. REVIEW OF SYSTEMS: Cardiovascular, respiratory, gastrointestinal, neurology, and constitutional were all evaluated. PHYSICAL EXAMINATION: Vital signs: Temperature of 98.1, pulse of 94, blood pressure 105/58, respiratory rate of 18, and saturating at 96% on room air. General Appearance: Patient is well oriented to time, place, and person. Follows commands spontaneously. Cardiovascular System: S1, S2 heard with normal intensity. Grade 2/6 systolic murmur appreciated. Respiratory System: Clear to auscultation bilaterally. Minimal crepitations at the base. No wheeze. Abdomen: Soft. Bowel sounds positive. Nontender. No rigidity. Extremities: No edema in bilateral lower extremities. Neurologic: No gross focal neurological deficits. MEDICATIONS: Reviewed. 1. Continue with Tylenol 650 every 4 hours as needed for pain. 2. Aspirin 81 mg daily. 3. Lovenox 40 mg subcutaneous daily. 4. Lasix 40 mg daily. 5. Levemir 56 units subcutaneous daily. 6. Levofloxacin 750 mg IV q.24 hours. 7. Levothyroxine 125 mcg daily. 8. Lisinopril 5 mg daily. 9. Metoprolol 12.5 mg twice a day. 10.Multivitamin 1 tablet daily. 11.Ambien 5 mg at bedtime as needed for sleep. LABORATORY DATA: Reviewed shows WBC 4.9, hemoglobin 9.7, hematocrit 31.7, and platelet count 201. Sodium 132, potassium 3.8, chloride 98, bicarb 27, BUN 16, creatinine 1, and glucose 256. Magnesium 1.9. BNP 462. ASSESSMENT: 1. Acute on chronic congestive heart failure with systolic dysfunction. 2. Hyponatremia. 3. Anemia. 4. Hypertension. 5. Hyperlipidemia. 6. Type 2 diabetes mellitus. PLAN: 1. Acute on chronic congestive heart failure secondary to systolic dysfunction. The patient was admitted with CHF exacerbation and was treated with IV Lasix 20 mg q.8 hourly. We were able to switch her to oral Lasix today. We will need to closely follow, see how she responds to the oral Lasix. Closely monitor input, output, and daily weights. The patient noted to be in a negative balance. 2. Hypertension. The patient's blood pressure seems to be on the lower side. Given her poor ejection fraction, added metoprolol at a low dose at 12.5 mg twice a day. We will need to see how she tolerates that beta-christian with her congestive heart failure and decreased ejection fraction. Continue with the lisinopril. We will decrease the lisinopril to 5 mg once a day to avoid any hypotensive episodes. 3. Secondary to adding beta-christian, we will have her on telemetry unit, make sure patient does not have any bradycardia as a result of her adding beta- christian. 4. Type 2 diabetes mellitus, uncontrolled. The patient noted to have elevated blood sugar. She is currently on insulin regimen, continue the same. Have her on supplemental scale insulin as needed for additional coverage of her blood glucose. 5. The patient will need to be switched to inpatient as we are still titrating her medications, added metoprolol, and we need to closely monitor the telemetry unit given her congestive heart failure and decrease the lisinopril. So I will switch her to inpatient and moreover, her ejection fraction is only 25%, so we will need to be careful regarding adding medications in the acute state. Discussed with Dr. Trejo regarding the plan of care. [facility] /[id number] }
[2016-08-05] MEDS ORDERED: Sodium Chloride 0.9% 500 ML IV SCH (15:15)
[2016-08-05] MEDS: Levofloxacin/Dextrose 5%-Water 750 MG in Premix Bag 1 BAG IV SCH (19:42)
[2016-08-06] MEDS: Codeine/guaiFENesin 100-10 MG/5 ML Syrup 5 ML Cup PO PRN ×2 (00:29→20:32)
[2016-08-06] MEDS: Albuterol/Ipratropium 3.0-0.5 MG/3 ML Neb Soln NEB SCH ×4 (00:33→18:03)
[2016-08-06] MEDS: Sodium Chloride 0.9% 500 ML IV SCH ×2 (02:22→09:26)
[2016-08-06] MEDS: Levothyroxine 125 MCG Tab PO SCH (05:52)
[2016-08-06] MEDS ORDERED: Furosemide 40 MG Tab PO SCH (09:00)
[2016-08-06] MEDS: Insulin Aspart 100 Units/ML 3 ML Pen SUBCUT SCH ×4 (09:19→21:33)
[2016-08-06] MEDS: Insulin Detemir 100 Units/ML 3 ML Pen SUBCUT SCH (09:20)
[2016-08-06] MEDS: Enoxaparin 40 MG/0.4 ML Syringe SUBCUT SCH (09:32)
[2016-08-06] MEDS: Multivitamins, Therapeutic with Minerals Tab PO SCH (09:33)
[2016-08-06] MEDS: Aspirin 81 MG Tab.EC PO SCH (09:33)
[2016-08-06] MEDS: Calcium Carbonate/Vitamin D3 1250 MG-200 Unit Tab PO SCH (09:33)
[2016-08-06] MEDS: KETOROLAC 0.5% EYERT SCH ×2 (09:37→20:27)
[2016-08-06] MEDS: PREDNISOLONE ACETATE 1% EYERT SCH ×4 (09:39→20:27)
[2016-08-06] MEDS: Lisinopril 5 MG Tab PO SCH (11:05)
--- NOTE | 2016-08-06 12:41 | PN ---
{null, DATE: 08/06/2016 SUBJECTIVE: Mrs. Orlin Dejesus is a 70-year-old female with medical history significant for hypertension and hyperlipidemia, admitted with complaints of increasing shortness of breath and was noted to be in acute on chronic congestive heart failure with elevated BNP. For the past 24 hours, the patient had complications with hypotensive episodes requiring IV fluids. We had to hold her antihypertensive medications. She denies any chest pain. No shortness of breath. No abdominal pain. No nausea. No vomiting. No diarrhea. She could not sleep well overnight secondary to low blood pressure. REVIEW OF SYSTEMS: Cardiovascular, respiratory, gastrointestinal, neurology, constitutional were all evaluated. PHYSICAL EXAMINATION: Vital signs: Temperature of 98.4, pulse of 93, blood pressure of 110/50, respiratory rate 20, saturating at 95% on room air. General Appearance: The patient is well oriented to time, place, and person. Follows commands spontaneously. Cardiovascular System: S1, S2 heard with normal intensity. Mild 2/6 systolic murmur appreciated. Respiratory: Clear to auscultation bilaterally. No wheeze. No crepitations. Abdomen: Soft. Bowel sounds positive. Nontender. No rigidity. Extremities: No edema bilateral lower extremities. Neurology: No gross focal neurological deficits. Skin: No acute rash noted on the skin. MEDICATIONS: Reviewed. 1. Tylenol 650 mg every 4 hours as needed for pain. 2. Proventil 2.5 mg nebulizer every 2 hours as needed for shortness of breath. 3. Aspirin 81 mg daily. 4. Docusate sodium 100 mg twice a day. 5. Lovenox 40 mg subcutaneous daily. 6. Lasix 40 mg daily, on hold for now. 7. Levemir 56 units daily. 8. Levothyroxine 125 mcg daily. 9. Lisinopril 5 mg daily, currently on hold. 10.Morphine 2 mg IV every 2 hours as needed for pain. 11.Zofran 4 mg IV every 6 hours as needed for nausea vomiting. 12.Ambien 5 mg at bedtime as needed for sleep. LABS: No new labs ordered for today. We will order for a basic metabolic panel. ASSESSMENT: 1. Acute on chronic congestive heart failure secondary to systolic and diastolic dysfunction with ejection fraction less than 25%. 2. Hypertension. 3. Hyperlipidemia. 4. Hyponatremia. 5. Type 2 diabetes mellitus. PLAN: 1. Acute congestive heart failure secondary to systolic and diastolic dysfunction. The patient underwent echocardiogram on this admission which showed an ejection fraction of less than 25% with global hypokinesis. Discussed with Cardiology over at [facility]. She will be following with Cardiology Clinic as an outpatient once she is discharged from here. She denies any chest pains. Her initial set of cardiac enzymes remained negative. No significant changes noted on the 12-lead EKG also. The patient was started on Lasix 20 IV q.8 hourly. This had made her into dehydration and low blood pressure, so we had to give her some IV fluids. We will recheck a basic metabolic panel today and also a BMP today or in a.m., and we will closely follow. 2. Hypertension. Patient remained hypotensive overnight she required IV fluids. We will hold the lisinopril and metoprolol and hold the Lasix today and try to normalize the blood pressure. 3. Type 2 diabetes mellitus. Continue with insulin regimen. Check her fingersticks with each meals. Have her on supplemental scale insulin as needed for additional coverage of her blood glucose. She is noted to have uncontrolled diabetes at this time. We will try to get a hemoglobin A1c. 4. Hypothyroidism. Patient is currently on levothyroxine and TSH is within normal limits. Continue with current dose of levothyroxine. 5. We will check a basic metabolic panel, and also a BMP in a.m. The patient not stable enough to be discharged home secondary to low blood pressure and further requiring titration of her medications. Closely monitor in the telemetry unit. [facility] /[id number] }
[2016-08-06] MEDS: Sodium Chloride 0.9% 10 ML Syringe FLUSH PRN (20:00)
[2016-08-06] MEDS ORDERED: Insulin Aspart 100 Units/ML 3 ML Pen SUBCUT ONE (21:13)
[2016-08-07] MEDS: Albuterol/Ipratropium 3.0-0.5 MG/3 ML Neb Soln NEB SCH ×3 (00:52→13:25)
[2016-08-07] MEDS: Levothyroxine 125 MCG Tab PO SCH (05:51)
[2016-08-07 06:46] LABS: CHLORIDE,CL 104 mmol/L (101-111); SODIUM,NA 137 mmol/L (135-145)
[2016-08-07] MEDS: Insulin Aspart 100 Units/ML 3 ML Pen SUBCUT SCH ×2 (08:21→12:16)
[2016-08-07] MEDS: Insulin Detemir 100 Units/ML 3 ML Pen SUBCUT SCH (08:24)
[2016-08-07] MEDS: Lisinopril 5 MG Tab PO SCH (10:20)
[2016-08-07] MEDS: Multivitamins, Therapeutic with Minerals Tab PO SCH (10:20)
[2016-08-07] MEDS: Calcium Carbonate/Vitamin D3 1250 MG-200 Unit Tab PO SCH (10:20)
[2016-08-07] MEDS: Aspirin 81 MG Tab.EC PO SCH (10:20)
[2016-08-07] MEDS: PREDNISOLONE ACETATE 1% EYERT SCH ×2 (10:21→12:18)
[2016-08-07] MEDS: Enoxaparin 40 MG/0.4 ML Syringe SUBCUT SCH (10:21)
[2016-08-07] MEDS: KETOROLAC 0.5% EYERT SCH (10:22)
[2016-08-07 11:24] VITALS: BP 138/72
[2016-08-07] MEDS ORDERED: Furosemide 20 MG Tab PO SCH (21:00)
--- NOTE | 2016-08-09 07:02 | DISCH ---
{null, PATIENT ADMITTED ON 08/03/2016 ADMITTING DIAGNOSES: 1. Acute congestive heart failure, possible bronchitis. 2. Bilateral pleural effusion. 3. Hypoglycemia. DISCHARGE DIAGNOSES: 1. Acute on chronic congestive heart failure secondary to systolic and diastolic dysfunction with 2D echocardiogram showing ejection fraction less than 25% with global hypokinesis. 2. Possible bronchitis, treated with antibiotics, resolved. 3. Type 2 diabetes mellitus, uncontrolled. 4. Hypotension with beta-christian, needing to hold the beta-christian for now. HISTORY OF PRESENT ILLNESS: Ms. Brianne Ordaz is a 70-year-old female with medical history significant for hypertension, type 2 diabetes mellitus, hyperlipidemia, hypothyroidism, admitted to the hospital with complaints of increasing shortness of breath. She was noted to have elevated B-natriuretic peptide at the time of admission, where her BNP was noted to be around 674, suggestive of acute on chronic congestive heart failure. The patient was admitted and was started on Lasix at 20 mg IV q.8 hourly, after which she had diuresed well. She had a negative balance on this admission around 3 L. The patient responded well to the treatment. She had an echocardiogram done on this admission, which showed an ejection fraction of less than 25% with global hypokinesis. Discussed with Cardiology, was recommended for outpatient followup for further evaluation and treatment. We added a low-dose beta christian. After which, her blood pressure was low. She had a blood pressure of systolic 80-90 on this admission, requiring again fluid bolus and IV fluids, which has increased her BNP a little bit, but her symptoms remained stable. She denied any shortness of breath. She denied any dyspnea on exertion. She remained hemodynamically stable on this admission, so we had to pull back the beta christian. We could not add the beta christian again. We added the lisinopril. She will continue with the lisinopril and aspirin and statin. She is advised to follow with the primary care physician and follow with the cardiology Clinic. Since she is from [facility], she will need referral to the cardiology clinic. She remained hemodynamically stable on this admission. She is discharged home in stable condition. She denied any chest pains on this admission and her troponin remained negative on this admission next. DISCHARGE MEDICATIONS: Include: 1. Aspirin 81 mg daily. 2. Calcium carbonate with vitamin D one tablet daily. 3. Lasix 20 mg twice a day. 4. NovoLog 9 units subcutaneous 3 times a day. 5. Levemir 56 units daily. 6. Levothyroxine 125 mcg daily. 7. Lisinopril 5 mg daily. 8. Multivitamin 1 tablet daily. 9. Prednisone 1 drop eye, left, 4 times daily. 10.Janumet 50/500 mg 1 tablet twice daily. The patient is advised to hold Janumet for now secondary to the acute on chronic congestive heart failure and continue with insulin regimen. PHYSICAL EXAMINATION: Vital Signs: On the day of discharge vitals; temperature of 97.6, blood pressure 107/53, respiratory rate of 20, saturating at 96% on room air. General Appearance: Patient is well oriented to time, place, and person. Follows commands spontaneously. Cardiovascular: S1, S2 heard with normal intensity. No gallops. Respiratory: Clear to auscultation bilaterally. No wheeze. No crepitations. Abdomen: Soft. Bowel sounds positive. Nontender. No rigidity. Extremities: No edema of lower extremities. Neurology: No gross focal neurological deficits. Skin: No acute rash noted. CONDITION ON ADMISSION: Poor. CONDITION ON DISCHARGE: Stable. ACTIVITY: As tolerated. DIET: Cardiac healthy diet with consistent carbohydrate diet. FOLLOWUP: Follow up with primary care physician within 1 week of time and to follow with Cardiology Clinic within 1 week of time. Spent over 35 minutes of time in evaluating and treating this patient and making discharge plans. [facility] /[id number] }
== END 2016-08-07 14:10 | disposition home or self-care (01) | DRG 293 ==
LOC: DL.ED 16:23 → UNDOADMOB 19:06 → DL.MS 19:06 → OBSVTOIN 08-05 15:50
PROVIDERS: ADMIT Family Medicine; ATTEND Internal Medicine
DX: I11.0 Hypertensive heart disease with heart failure (principal); I50.43 Acute on chronic combined systolic (congestive) and diastolic (congestive) heart failure; J40 Bronchitis, not specified as acute or chronic; E11.65 Type 2 diabetes mellitus with hyperglycemia; Z79.4 Long term (current) use of insulin; I95.9 Hypotension, unspecified; E78.5 Hyperlipidemia, unspecified; E03.9 Hypothyroidism, unspecified; Z79.82 Long term (current) use of aspirin; Z79.01 Long term (current) use of anticoagulants; Z82.49 Family history of ischemic heart disease and other diseases of the circulatory system
CPT/HCPCS: 36415; 71020; 80048; 80053; 81001; 82272; 82962; 83605; 83735; 83880; 84443; 84484; 85025; 87040; 93005; 93306; 94060; 94640; 96365; 96366; 96372; 96374; 96375; 99285; A9270-GY; G0378; J1650; J1815-GY; J1940; J1956; J3475; J7040; J7050

== ENCOUNTER 2016-08-28 05:13 | Emergency (ER) | payer OTHER ==
[2016-08-28 05:20] VITALS: BP 114/74
[2016-08-28] MEDS ORDERED: Codeine/guaiFENesin 100-10 MG/5 ML Syrup 5 ML Cup PO ONE (05:25)
--- NOTE | 2016-08-28 05:31 | EDM.PDOC ---
ED HPI GENERAL MEDICAL PROBLEM - General Chief Complaint: Respiratory Problem Stated Complaint: CANT STOP COUGHING Time Seen by Provider: 08/28/16 05:20 Source of Information: Reports: Patient History Limitations: Reports: No Limitations - History of Present Illness INITIAL COMMENTS - FREE TEXT/NARRATIVE: This 70 yo female patient reports to the ED with a constant cough. The patient reports she was seen in the clinic on Tuesday and yesterday. The patient is Tessalon Perles and a Z-pack, but continues to cough. The patient reports she has been up all night due to the cough. The patient reports she has not tried any over the counter cough medications, because she does not want to take anything that is not prescribed by a provider. 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: Other Medication(s) - Related Data Allergies Allergy/AdvReac Type Severity Reaction Status Date / Time No Known Allergies Allergy Verified 07/14/16 09:43 Home Meds: Home Meds Aspirin [Halfprin] 81 mg PO DAILY 09/18/14 [History] Calcium Carbonate/Vitamin D3 [Calcium 500-Vit D3 200 Caplet] 1 tab PO DAILY 04/04 [History] Insulin Aspart [Novolog Flexpen] 9 unit SUBCUT TID 09/18/14 [History] Levothyroxine 125 mcg PO DAILY 09/18/14 [History] Multivitamin with Minerals [Multiple Vitamin] 1 tab PO DAILY 09/18/14 [History] Insulin Detemir [Levemir] 56 unit SUBCUT DAILY@0800 07/13/16 [History] Furosemide [Lasix] 20 mg PO BID #60 tablet 08/07/16 [Rx] Lisinopril [Prinivil] 5 mg PO DAILY #30 tablet 08/07/16 [Rx] Carvedilol [Coreg] 3.125 mg PO BID 08/28/16 [History] Past Medical History HEENT History: Reports: Cataract, Impaired Vision Cardiovascular History: Reports: Hypertension, Other (See Below) Other Cardiovascular History: HYPERLIPIDEMIA Respiratory History: Reports: Bronchitis, Recurrent Gastrointestinal History: Reports: Other (See Below) Other Gastrointestinal History: positive hemoccult Genitourinary History: Reports: None 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 Endocrine/Metabolic History: Reports: Diabetes, Type II, Hypothyroidism Other Endocrine/Metabolic History: HYPOTHYRIODISM Hematologic History: Reports: None Immunologic History: Reports: Other (See Below) Other Immunologic History: MRSA Oncologic (Cancer) History: Reports: None Dermatologic History: Reports: Other (See Below) Other Dermatologic History: CYST REMOVAL BREAST - Infectious Disease History Infectious Disease History: Reports: Chicken Pox, Measles, Mumps, Rubella - Past Surgical History Head Surgeries/Procedures: Reports: None HEENT Surgical History: Reports: Cataract Surgery Female Surgical History: Reports: Tubal Ligation Other Oncologic Surgeries/Procedures: non-cancerous cyst removed from right breast Social & Family History - Family History Cardiac: Reports: CAD, [place] Musculoskeletal: Reports: Arthritis Neurological: Reports: CVA Endocrine/Metabolic: Reports: Other (See Below) Other Endocrine/Metabolic Family History: Diabetes. Type unknown Oncologic: Reports: Breast - Tobacco Use Smoking Status *Q: Never Smoker Second Hand Smoke Exposure: Yes - Caffeine Use Caffeine Use: Reports: Soda, Tea - Alcohol Use Days Per Week of Alcohol Use: 0 - Recreational Drug Use Recreational Drug Use: No ED ROS GENERAL - Review of Systems Review Of Systems: ROS reveals no pertinent complaints other than HPI. ED EXAM, GENERAL - Physical Exam Exam: See Below Exam Limited By: No Limitations General Appearance: Alert, WD/WN, Mild Distress Eye Exam: Bilateral Eye: EOMI, Normal Inspection, PERRL Ears: Normal External Exam, Normal Canal, Hearing Grossly Normal, Normal TMs Nose: Normal Inspection, Normal Mucosa, No Blood Throat/Mouth: Normal Inspection, Normal Lips, Normal Teeth, Normal Gums, Normal Oropharynx, Normal Voice, No Airway Compromise Head: Atraumatic, Normocephalic Neck: Normal Inspection, Supple, Non-Tender, Full Range of Motion Respiratory/Chest: No Accessory Muscle Use, Rhonchi (fine in the bases) Cardiovascular: Normal Peripheral Pulses, Regular Rate, Rhythm, No Edema, No Gallop, No JVD, No Murmur, No Rub GI/Abdominal: Normal Bowel Sounds, Soft, Non-Tender, No Organomegaly, No Distention, No Abnormal Bruit, No Mass (Female) Exam: Deferred Rectal (Female) Exam: Deferred Back Exam: Normal Inspection, Full Range of Motion, NT Extremities: Normal Inspection, Normal Range of Motion, Non-Tender, Normal Capillary Refill, No Pedal Edema Neurological: Alert, Oriented, CN II-XII Intact, Normal Cognition, Normal Gait, Normal Reflexes, No Motor/Sensory Deficits Psychiatric: Normal Affect, Normal Mood Skin Exam: Warm, Dry, Intact, Normal Color, No Rash Lymphatic: No Adenopathy Course - Vital Signs Last Recorded V/S: Last Vital Signs Temp 35.9 C 08/28/16 05:19 Pulse 91 08/28/16 05:19 Resp 20 08/28/16 05:19 BP 114/74 08/28/16 05:19 Pulse Ox 99 08/28/16 05:19 Departure - Departure Time of Disposition: 05:31 Disposition: Home, Self-Care 01 Condition: fair Clinical Impression: Cough, Bronchitis - Discharge Information Instructions: Acute Bronchitis, Cough, Adult, [id number] Forms: ED Department Discharge Care Plan Goals: The patient was advised of the examination results during the visit. The patient was given an oral dose of Robitussin AC while in the ED. The patient was discharged with a script for Robitussin AC #100 mL to take 10 mL by mouth at bedtime. The patient should continue to take the medication prescribed to her during her other visits this week. If the patient has any additional symptoms or concerns, the patient should visit her primary care facility or return to the emergency department.
== END 2016-08-28 05:35 | disposition home or self-care (01) ==
LOC: DL.ED 05:13
DX: J40 Bronchitis, not specified as acute or chronic (principal); I10 Essential (primary) hypertension; E78.5 Hyperlipidemia, unspecified; F41.9 Anxiety disorder, unspecified; E11.9 Type 2 diabetes mellitus without complications; E03.9 Hypothyroidism, unspecified; Z98.49 Cataract extraction status, unspecified eye; Z98.51 Tubal ligation status; Z98.890 Other specified postprocedural states; Z79.82 Long term (current) use of aspirin; Z79.4 Long term (current) use of insulin; Z79.899 Other long term (current) drug therapy
CPT/HCPCS: 99283; A9270

== ENCOUNTER 2016-10-14 20:24 | Emergency (ER) | payer OTHER ==
[2016-10-14 20:35] VITALS: BP 116/59
--- NOTE | 2016-10-14 20:52 | EDM.PDOC ---
ED HPI GENERAL MEDICAL PROBLEM - General Chief Complaint: Respiratory Problem Stated Complaint: COUGH [id number] Time Seen by Provider: 10/14/16 20:50 Source of Information: Reports: Patient History Limitations: Reports: No Limitations - History of Present Illness INITIAL COMMENTS - FREE TEXT/NARRATIVE: 2 days h/o dry cough also been having night sweats. denies CP except when she coughs it hurts her chest at area of 4x CABG in August @ [facility]. 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 - Related Data Allergies Allergy/AdvReac Type Severity Reaction Status Date / Time No Known Allergies Allergy Verified 10/14/16 20:30 Home Meds: Home Meds Aspirin [Halfprin] 81 mg PO DAILY 09/18/14 [History] Calcium Carbonate/Vitamin D3 [Calcium 500-Vit D3 200 Caplet] 1 tab PO DAILY 04/04 [History] Insulin Aspart [Novolog Flexpen] 9 - 15 unit SUBCUT TID 09/18/14 [History] Levothyroxine 125 mcg PO DAILY 09/18/14 [History] Multivitamin with Minerals [Multiple Vitamin] 1 tab PO DAILY 09/18/14 [History] Insulin Detemir [Levemir] 56 unit SUBCUT DAILY@0800 07/13/16 [History] Furosemide [Lasix] 20 mg PO BID #60 tablet 08/07/16 [Rx] Lisinopril [Prinivil] 5 mg PO DAILY #30 tablet 08/07/16 [Rx] Carvedilol [Coreg] 3.125 mg PO BID 08/28/16 [History] Clopidogrel [Plavix] 1 tab PO DAILY 10/14/16 [History] Past Medical History HEENT History: Reports: Cataract, Impaired Vision Cardiovascular History: Reports: Hypertension, Other (See Below) Other Cardiovascular History: HYPERLIPIDEMIA Respiratory History: Reports: Bronchitis, Recurrent Gastrointestinal History: Reports: Other (See Below) Other Gastrointestinal History: positive hemoccult Genitourinary History: Reports: None 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 Endocrine/Metabolic History: Reports: Diabetes, Type II, Hypothyroidism Other Endocrine/Metabolic History: HYPOTHYRIODISM Hematologic History: Reports: None Immunologic History: Reports: Other (See Below) Other Immunologic History: MRSA Oncologic (Cancer) History: Reports: None Dermatologic History: Reports: Other (See Below) Other Dermatologic History: CYST REMOVAL BREAST - Infectious Disease History Infectious Disease History: Reports: Chicken Pox, Measles, Mumps, Rubella - Past Surgical History Head Surgeries/Procedures: Reports: None HEENT Surgical History: Reports: Cataract Surgery Female Surgical History: Reports: Tubal Ligation Other Oncologic Surgeries/Procedures: non-cancerous cyst removed from right breast Social & Family History - Family History Cardiac: Reports: CAD, [place] Musculoskeletal: Reports: Arthritis Neurological: Reports: CVA Endocrine/Metabolic: Reports: Other (See Below) Other Endocrine/Metabolic Family History: Diabetes. Type unknown Oncologic: Reports: Breast - Tobacco Use Smoking Status *Q: Never Smoker Second Hand Smoke Exposure: Yes - Caffeine Use Caffeine Use: Reports: Soda, Tea - Alcohol Use Days Per Week of Alcohol Use: 0 - Recreational Drug Use Recreational Drug Use: No ED ROS GENERAL - Review of Systems Review Of Systems: ROS reveals no pertinent complaints other than HPI. ED EXAM, GENERAL - Physical Exam Exam: See Below Exam Limited By: No Limitations General Appearance: Alert, WD/WN, No Apparent Distress, Other (episodic cough spasms) Ears: Hearing Grossly Normal Throat/Mouth: Normal Voice, No Airway Compromise, Inflammation Head: Atraumatic Neck: Non-Tender, Full Range of Motion Respiratory/Chest: No Respiratory Distress, No Accessory Muscle Use, Rhonchi Cardiovascular: Regular Rate, Rhythm GI/Abdominal: Soft, Non-Tender Neurological: Alert, Oriented, Normal Cognition, Normal Gait, No Motor/Sensory Deficits Psychiatric: Normal Affect, Normal Mood Skin Exam: Warm, Dry Lymphatic: No Adenopathy Course - Vital Signs Last Recorded V/S: Last Vital Signs Temp 36.1 C 10/14/16 20:34 Pulse 94 10/14/16 20:34 Resp 19 10/14/16 20:34 BP 116/59 L 10/14/16 20:34 Pulse Ox 100 10/14/16 20:34 - Orders/Labs/Meds Orders: Active Orders 24 hr Category Date Time Status CULTURE STREP A CONFIRMATION [] Stat Lab 10/14/16 20:47 Results STREP SCRN A RAPID W CULT CONF [] Stat Lab 10/14/16 20:47 Results Labs: Laboratory Tests 10/14/16 10/14/16 Range/Units 21:30 21:30 WBC 6.9 (5.0-10.0) 10^3/uL RBC 3.63 L (4.2-5.4) 10^6/uL Hgb 9.5 L (12.0-16.0) g/dL Hct 31.5 L (37.0-47.0) % MCV 86.8 (80-100) fL MCH 26.2 L (27.0-34.0) pg MCHC 30.2 L (33.0-35.0) g/dL Plt Count 196 (150-450) 10^3/uL Neut % (Auto) 50.4 (42.2-75.2) % Lymph % (Auto) 26.4 (20.5-50.1) % Josephine % (Auto) 9.2 H (2-8) % Eos % (Auto) 13.0 H (1.0-3.0) % Baso % (Auto) 1.0 (0.0-1.0) % Sodium 136 (135-145) mmol/L Potassium 3.8 (3.6-5.0) mmol/L Chloride 100 L (101-111) mmol/L Carbon Dioxide 25.0 (21.0-31.0) mmol/L Anion Gap 14.8 BUN 14 (7-18) mg/dL Creatinine 0.9 (0.6-1.3) mg/dL Est Cr Clr Drug Dosing TNP Estimated GFR (MDRD) > 60 BUN/Creatinine Ratio 15.55 Glucose 326 H (74-105) mg/dL Calcium 8.2 L (8.4-10.2) mg/dl Total Bilirubin 0.7 (0.2-1.0) mg/dL AST 49 H (10-42) IU/L ALT 25 (10-60) IU/L Alkaline Phosphatase 108 (42-121) IU/L B-Natriuretic Peptide 735 H (0-100) pg/ml Total Protein 6.8 (6.7-8.2) g/dl Albumin 3.1 L (3.2-5.5) g/dl Globulin 3.7 Albumin/Globulin Ratio 0.84 Meds: Medications Discontinued Medications Generic Name Dose Route Start Last Admin Trade Name Freq PRN Reason Stop Dose Admin Furosemide 20 mg 10/14/16 22:21 Lasix PO 10/14/16 22:22 ONETIME ONE Promethazine HCl/Codeine 5 ml 10/14/16 22:21 Phenergan With Codeine PO 10/14/16 22:22 ONETIME ONE - Re-Assessments/Exams Free Text/Narrative Re-Assessment/Exam: 10/14/16 22:22 results discussed with pt who is aware lisinopril causes cough. Departure - Departure Time of Disposition: 22:23 Disposition: Home, Self-Care 01 Condition: Good Clinical Impression: Bronchospasm Acute on chronic congestive heart failure Qualifiers: Congestive heart failure type: unspecified congestive heart failure type Qualified Code(s): I50.9 - Heart failure, unspecified - Discharge Information Instructions: Bronchospasm, Adult, [id number] Forms: ED Department Discharge Additional Instructions: 1) rest 2) don't sleep flat at night 3) follow up with family doctor or recheck if there is any change or concern rx given; phenergan codeine syrup qid prn x 4 oz - My Orders Last 24 Hours: My Active Orders 10/14/16 20:47 CULTURE STREP A CONFIRMATION [RM] Stat STREP SCRN A RAPID W CULT CONF [] Stat - Assessment/Plan Last 24 Hours: My Active Orders 10/14/16 20:47 CULTURE STREP A CONFIRMATION [RM] Stat STREP SCRN A RAPID W CULT CONF [RM] Stat
[2016-10-14 21:51] LABS: CHLORIDE,CL 100 mmol/L (101-111); SODIUM,NA 136 mmol/L (135-145)
[2016-10-14] MEDS ORDERED: Furosemide 20 MG Tab PO ONE (22:21)
[2016-10-14] MEDS ORDERED: Codeine/Promethazine 10-6.25 MG/5 ML Syrup 5 ML UD Cup PO ONE (22:21)
== END 2016-10-14 22:40 | disposition home or self-care (01) ==
LOC: DL.ED 20:24
DX: J98.01 Acute bronchospasm (principal); I11.0 Hypertensive heart disease with heart failure; I50.9 Heart failure, unspecified; M19.90 Unspecified osteoarthritis, unspecified site; F41.9 Anxiety disorder, unspecified; E11.9 Type 2 diabetes mellitus without complications; E03.9 Hypothyroidism, unspecified; Z98.49 Cataract extraction status, unspecified eye; Z98.51 Tubal ligation status; Z98.890 Other specified postprocedural states; Z79.02 Long term (current) use of antithrombotics/antiplatelets; Z79.4 Long term (current) use of insulin; Z79.82 Long term (current) use of aspirin; Z79.899 Other long term (current) drug therapy; Z95.1 Presence of aortocoronary bypass graft
CPT/HCPCS: 36415; 71020; 80053; 83880; 85025; 87081; 87430; 99283; A9270

== ENCOUNTER 2016-10-30 16:14 | Emergency (ER) | payer OTHER ==
[2016-10-30 18:03] VITALS: BP 116/46
--- NOTE | 2016-10-30 19:17 | EDM.PDOC ---
Scribed by Elsa Nam 10/30/161916 for Miguel A Flores MD <Miguel A Flores - Last Filed: 10/30/16 19:17> ED HPI GENERAL MEDICAL PROBLEM - General Chief Complaint: ENT Problem Stated Complaint: TOOTH PAIN [id number] Time Seen by Provider: 10/30/16 19:26 Left Oral/Mouth Pain Score (Numeric/FACES): 9 - Related Data Allergies Allergy/AdvReac Type Severity Reaction Status Date / Time No Known Allergies Allergy Verified 10/14/16 20:30 Home Meds: Home Meds Aspirin [Halfprin] 81 mg PO DAILY 09/18/14 [History] Calcium Carbonate/Vitamin D3 [Calcium 500-Vit D3 200 Caplet] 1 tab PO DAILY 04/04 [History] Insulin Aspart [Novolog Flexpen] 9 - 15 unit SUBCUT TID 09/18/14 [History] Levothyroxine 125 mcg PO DAILY 09/18/14 [History] Multivitamin with Minerals [Multiple Vitamin] 1 tab PO DAILY 09/18/14 [History] Insulin Detemir [Levemir] 56 unit SUBCUT DAILY@0800 07/13/16 [History] Furosemide [Lasix] 20 mg PO BID #60 tablet 08/07/16 [Rx] Lisinopril [Prinivil] 5 mg PO DAILY #30 tablet 08/07/16 [Rx] Carvedilol [Coreg] 3.125 mg PO BID 08/28/16 [History] Clopidogrel [Plavix] 1 tab PO DAILY 10/14/16 [History] Past Medical History HEENT History: Reports: Cataract, Impaired Vision Cardiovascular History: Reports: Hypertension, Other (See Below) Other Cardiovascular History: HYPERLIPIDEMIA Respiratory History: Reports: Bronchitis, Recurrent Gastrointestinal History: Reports: Other (See Below) Other Gastrointestinal History: positive hemoccult Genitourinary History: Reports: None 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 Endocrine/Metabolic History: Reports: Diabetes, Type II, Hypothyroidism Other Endocrine/Metabolic History: HYPOTHYRIODISM Hematologic History: Reports: None Immunologic History: Reports: Other (See Below) Other Immunologic History: MRSA Oncologic (Cancer) History: Reports: None Dermatologic History: Reports: Other (See Below) Other Dermatologic History: CYST REMOVAL BREAST - Infectious Disease History Infectious Disease History: Reports: Chicken Pox, Measles, Mumps, Rubella - Past Surgical History Head Surgeries/Procedures: Reports: None HEENT Surgical History: Reports: Cataract Surgery Female Surgical History: Reports: Tubal Ligation Other Oncologic Surgeries/Procedures: non-cancerous cyst removed from right breast Social & Family History - Family History Cardiac: Reports: CAD, [place] Musculoskeletal: Reports: Arthritis Neurological: Reports: CVA Endocrine/Metabolic: Reports: Other (See Below) Other Endocrine/Metabolic Family History: Diabetes. Type unknown Oncologic: Reports: Breast - Tobacco Use Smoking Status *Q: Never Smoker Second Hand Smoke Exposure: Yes - Caffeine Use Caffeine Use: Reports: Soda, Tea - Alcohol Use Days Per Week of Alcohol Use: 0 - Recreational Drug Use Recreational Drug Use: No Course - Vital Signs Last Recorded V/S: Last Vital Signs Temp 98.2 F 10/30/16 18:02 Pulse 69 10/30/16 18:02 Resp 20 10/30/16 18:02 BP 116/46 L 10/30/16 18:02 Pulse Ox 98 10/30/16 18:02 Departure - Departure Disposition: Home, Self-Care 01 Clinical Impression: Dental caries, Pain due to dental caries - Discharge Information Instructions: Dental Abscess, [id number] Additional Instructions: keflex 500mg 4 times daily for 5 days tylenol 650mg every 4 hours as needed for pain viscous lidocaine apply thin layer around affected teeth 3 times daily as needed Dentist Tuesday romm temperature liquids Chew on opposite side <Courtney Dorantes - Last Filed: 10/30/16 19:40> ED HPI GENERAL MEDICAL PROBLEM - General Source of Information: Reports: Patient History Limitations: Reports: No Limitations - History of Present Illness INITIAL COMMENTS - FREE TEXT/NARRATIVE: Dental pain, severe upper and lower left side after eating sandwich. Has not tried anything for pain. Did try rinsing with listerine but didn't help, Pain slight improved from onset at 4pm Duration: Day(s): ED ROS ENT - Review of Systems Review Of Systems: ROS reveals no pertinent complaints other than HPI. ED EXAM, ENT - Physical Exam Exam: See Below Exam Limited By: No Limitations General Appearance: Alert, Mild Distress Eye Exam: Bilateral Eye: EOMI Ears: Normal External Exam Nose: Normal Inspection Mouth/Throat: Dental Pain (upper and lower left 1st molars), Dental Tenderness, Other (poor dentation, multiple fillings with decay extending in surrounding area) Head: Atraumatic, Normocephalic Neck: Normal Inspection. No: Lymphadenopathy (L), Lymphadenopathy (R) Respiratory/Chest: No Respiratory Distress, Lungs Clear Cardiovascular: Regular Rate, Rhythm Neurological: Alert, Oriented Skin: Warm, Dry, Intact, Normal Color Departure - Departure Time of Disposition: 19:33 Condition: Good I have read and agree with the documentation that has been completed regarding this visit. By signing this record, I attest that the documentation was completed in my physical presence and is an accurate record of the encounter.
[2016-10-30] MEDS ORDERED: Lidocaine 2% Viscous Solution 15 ML Cup ONE (19:34)
[2016-10-30] MEDS ORDERED: Cephalexin 500 MG Cap PO ONE (19:34)
[2016-10-30] MEDS ORDERED: Lidocaine 2% Viscous Solution 15 ML Cup PO ONE (19:34)
[2016-10-30] MEDS ORDERED: Cephalexin 500 MG Cap ONE (19:34)
== END 2016-10-30 19:45 | disposition home or self-care (01) ==
LOC: DL.ED 16:14
DX: K02.9 Dental caries, unspecified (principal); I10 Essential (primary) hypertension; E78.5 Hyperlipidemia, unspecified; E11.9 Type 2 diabetes mellitus without complications; E03.9 Hypothyroidism, unspecified; Z98.49 Cataract extraction status, unspecified eye; Z98.51 Tubal ligation status; Z98.890 Other specified postprocedural states; Z79.4 Long term (current) use of insulin; Z79.82 Long term (current) use of aspirin; Z79.02 Long term (current) use of antithrombotics/antiplatelets; Z79.899 Other long term (current) drug therapy
CPT/HCPCS: 99282; A9270

== ENCOUNTER 2017-08-27 19:16 | Emergency (ER) | payer OTHER, MEDICARE, BC ==
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
[2017-08-27 19:50] LABS: CHLORIDE,CL 101 mmol/L (101-111); SODIUM,NA 137 mmol/L (135-145)
[2017-08-27] MEDS ORDERED: Bacitracin Oint 1 GM U/D Packet TOP ONE (19:55)
[2017-08-28 02:06] VITALS: BP 122/62
== END 2017-08-27 21:43 | disposition home or self-care (01) ==
LOC: DL.ED 19:16
DX: S20.01XA Contusion of right breast, initial encounter (principal); S40.212A Abrasion of left shoulder, initial encounter; I11.0 Hypertensive heart disease with heart failure; I50.9 Heart failure, unspecified; E11.9 Type 2 diabetes mellitus without complications; E03.9 Hypothyroidism, unspecified; Z79.82 Long term (current) use of aspirin; Z79.4 Long term (current) use of insulin; Z79.899 Other long term (current) drug therapy; V49.40XA Driver injured in collision with unspecified motor vehicles in traffic accident, initial encounter
CPT/HCPCS: 36415; 70450; 71046; 73030-LT; 80053; 85025; 85610; 99285

== ENCOUNTER 2018-09-02 08:58 | Emergency (ER) | payer BC, MEDICARE ==
[2018-09-02 09:18] VITALS: BP 128/44
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
== END 2018-09-02 10:11 | disposition home or self-care (01) ==
LOC: DL.ED 08:58
DX: J06.9 Acute upper respiratory infection, unspecified (principal); I11.0 Hypertensive heart disease with heart failure; I50.9 Heart failure, unspecified; E11.9 Type 2 diabetes mellitus without complications; E03.9 Hypothyroidism, unspecified; F41.9 Anxiety disorder, unspecified; Z79.82 Long term (current) use of aspirin; Z79.4 Long term (current) use of insulin; Z79.899 Other long term (current) drug therapy
CPT/HCPCS: 71046; 87081; 87430; 99283

== ENCOUNTER 2020-08-16 08:54 | Emergency (ER) | payer MEDICARE, BC ==
[2020-08-16 09:14] VITALS: BP 115/35; PULSE 64
[2020-08-16 10:02] LABS: ANION GAP 13.2 mEq/L (7-13)
--- NOTE | 2020-08-16 10:23 | CR ---
PROCEDURE INFORMATION: Exam: XR Chest Exam date and time: 08/16/2020 9:52 AM Age: 74 years old Clinical indication: Cough TECHNIQUE: Imaging protocol: XR of the chest. Views: 1 view. COMPARISON: CR Chest 2V 09/20/2018 3:36 PM FINDINGS: Lungs: Strand of atelectasis or fibrosis lower lung Pleural spaces: Unremarkable. No pleural effusion. No pneumothorax. Heart/Mediastinum: Unremarkable. No cardiomegaly. Bones/joints: Sternotomy. IMPRESSION: No acute findings
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
== END 2020-08-16 11:19 | disposition home or self-care (01) ==
LOC: DL.ED 08:54
DX: J06.9 Acute upper respiratory infection, unspecified (principal); I11.0 Hypertensive heart disease with heart failure; I50.9 Heart failure, unspecified; E03.9 Hypothyroidism, unspecified; E78.5 Hyperlipidemia, unspecified; Z79.4 Long term (current) use of insulin; Z79.82 Long term (current) use of aspirin; Z79.899 Other long term (current) drug therapy
CPT/HCPCS: 36415; 71045; 80053; 83880; 85025; 85379; 93005; 99283; 99284-25

== ENCOUNTER 2020-11-09 08:56 | Emergency (ER) | payer MEDICARE, BC ==
[2020-11-09 09:09] VITALS: BP 129/47; PULSE 64
--- NOTE | 2020-11-09 09:33 | EDM.PDOC ---
<Dimitrios Trejo Dulce Maria - Last Filed: 11/09/20 10:27> ED HPI GENERAL MEDICAL PROBLEM - General Chief Complaint: General Stated Complaint: [id number] COUGH AND RUNNY NOSE Time Seen by Provider: 11/09/20 09:27 Source of Information: Reports: Patient History Limitations: Reports: No Limitations - History of Present Illness INITIAL COMMENTS - FREE TEXT/NARRATIVE: 75 y/o F c/o cough, sore throat and runny nose for three weeks. Pt states she initially had a productive yellow cough and runny nose. She states she went to her provider Roz Hoffman NP who put her on Augmentin for 10 days. Pt states she took the Rx as prescribed and seemed to improve but after finishing the the med on November 01 her symptoms returned minus the yellow sputum. She has been using mucinex and tylenol with no relief. Hx of quad bypass and is no lasixs and several other medications. Denies fever, vision prob, db, cp, abd pn, constipation, difficulty voiding, drugs, etoh. Duration: Week(s): Location: Reports: Head, Chest Severity: Mild Improves with: Reports: None Worsens with: Reports: None - Related Data Allergies Allergy/AdvReac Type Severity Reaction Status Date / Time No Known Allergies Allergy Verified 11/09/20 09:03 Home Meds: Home Meds Aspirin [Halfprin] 81 mg PO DAILY 09/18/14 [History] Calcium Carbonate/Vitamin D3 [Calcium 500-Vit D3 200 Caplet] 1 tab PO DAILY 09/18/14 [History] Insulin Aspart [Novolog Flexpen] 9 - 15 unit SUBCUT TID 09/18/14 [History] Levothyroxine 125 mcg PO DAILY 09/18/14 [History] Multivitamin with Minerals [Multiple Vitamin] 1 tab PO DAILY 09/18/14 [History] Insulin Detemir [Levemir] 25 unit SUBCUT BID 07/13/16 [History] Lisinopril [Prinivil] 5 mg PO DAILY #30 tablet 08/07/16 [Rx] Carvedilol [Coreg] 6.25 mg PO BID 08/28/16 [History] Clopidogrel [Plavix] 1 tab PO DAILY 10/14/16 [History] Ferrous Sulfate 1 tab PO BIDMEALS 11/16/16 [History] Furosemide [Lasix] 40 mg PO BID 11/17/16 [History] Saxagliptin HCl [Onglyza] 2.5 mg PO DAILY 06/03/18 [History] metFORMIN HCl [Metformin HCl] 1,000 mg PO BID 06/03/18 [History] Past Medical History HEENT History: Reports: Cataract, Impaired Vision Cardiovascular History: Reports: Bypass, Heart Failure, Hypertension, Other (See Below) Other Cardiovascular History: HYPERLIPIDEMIA Respiratory History: Reports: Bronchitis, Recurrent Gastrointestinal History: Reports: Other (See Below) Other Gastrointestinal History: positive hemoccult Genitourinary History: Reports: None PERIANESTHESIA RN History: Reports: Other PERIANESTHESIA RN History: POST MENOPAUSAL BLEEDING Musculoskeletal History: Reports: Arthritis, Back Pain, Chronic, Other (See Below) Other Musculoskeletal History: DEGENERATIVE JOINT DISEASE; FX R CLAVICLE Neurological History: Reports: None Psychiatric History: Reports: Anxiety Other Psychiatric History: Day after [place] of 2015; client states had anxiety attack r/t grand-daughter going into labor during storm. Endocrine/Metabolic History: Reports: Diabetes, Type II, Hypothyroidism Other Endocrine/Metabolic History: HYPOTHYRIODISM Hematologic History: Reports: None Immunologic History: Reports: Other (See Below) Other Immunologic History: MRSA Oncologic (Cancer) History: Reports: None Dermatologic History: Reports: Other (See Below) Other Dermatologic History: CYST REMOVAL BREAST - Infectious Disease History Infectious Disease History: Reports: Chicken Pox, Measles, Mumps, Rubella - Past Surgical History Head Surgeries/Procedures: Reports: None HEENT Surgical History: Reports: Cataract Surgery Other HEENT Surgeries/Procedures: Lenses present in eyes bilaterally from cataract surgery Cardiovascular Surgical History: Reports: Coronary Artery Bypass Respiratory Surgical History: Reports: None GI Surgical History: Reports: Colonoscopy Female Surgical History: Reports: Tubal Ligation Endocrine Surgical History: Reports: None Other Musculoskeletal Surgeries/Procedures:: pain to left chest with coughing X 1 week Other Oncologic Surgeries/Procedures: non-cancerous cyst removed from right breast Social & Family History - Family History Family Medical History: No Pertinent Family History Cardiac: Reports: CAD, [place] Musculoskeletal: Reports: Arthritis Neurological: Reports: CVA Endocrine/Metabolic: Reports: Other (See Below) Other Endocrine/Metabolic Family History: Diabetes. Type unknown Oncologic: Reports: Breast - Tobacco Use Tobacco Use Status *Q: Never Tobacco User - Caffeine Use Caffeine Use: Reports: Tea Other Caffeine Use: states only green tea - Recreational Drug Use Recreational Drug Use: No ED ROS GENERAL - Review of Systems Review Of Systems: Comprehensive ROS is negative, except as noted in HPI. ED EXAM, GENERAL - Physical Exam Exam: See Below Exam Limited By: No Limitations General Appearance: Alert, WD/WN, No Apparent Distress Eye Exam: Bilateral Eye: PERRL Ears: Normal External Exam, Normal Canal, Hearing Grossly Normal, Normal TMs Ear Exam: Bilateral Ear: TM normal Nose: Other (swollen inflammed nasal turbinates) Throat/Mouth: Other (inflammed redened tonsillar pillars) Head: Atraumatic, Normocephalic Neck: Supple, Non-Tender Respiratory/Chest: No Respiratory Distress, Lungs Clear, Normal Breath Sounds, No Accessory Muscle Use, Chest Non-Tender Cardiovascular: Normal Peripheral Pulses Peripheral Pulses: 2+: Radial (L), Radial (R) GI/Abdominal: Soft, Non-Tender (Female) Exam: Deferred Rectal (Female) Exam: Deferred Back Exam: Normal Inspection, Full Range of Motion Extremities: Normal Inspection, Normal Range of Motion, Non-Tender, Normal Capillary Refill, No Pedal Edema Neurological: Alert, Oriented, Normal Cognition Psychiatric: Normal Affect, Normal Mood Skin Exam: Warm, Dry, Intact, Normal Color, No Rash Lymphatic: No Adenopathy Course - Re-Assessments/Exams Free Text/Narrative Re-Assessment/Exam: 11/09/20 10:27 discussed exam findings, lab and radiological findings with patient. She understood that there is no acute findings with her cxr and no indications of an infection in her WBC count. Pt likely has a viral illness and will be given an RX for Tessalon Perles. Departure - Departure Time of Disposition: 10:36 Disposition: Home, Self-Care 01 Condition: Good Clinical Impression: Viral URI with cough, Chronic cough - Discharge Information *PRESCRIPTION DRUG MONITORING PROGRAM REVIEWED*: Not Applicable *COPY OF PRESCRIPTION DRUG MONITORING REPORT IN PATIENT TAYLOR: Not Applicable Instructions: Viral Respiratory Infection, [id number] Forms: ED Department Discharge Additional Instructions: RX: tessalon perles If any new symptoms or concerns develop contact your primary care facility or return to the ER. Sepsis Event Note (ED) - Evaluation Sepsis Screening Result: No Definite Risk <Rajiv Jones - Last Filed: 11/09/20 10:53> Course - Vital Signs Last Recorded V/S: Last Vital Signs Temp 96.8 F L 11/09/20 09:03 Pulse 64 11/09/20 09:03 Resp 18 11/09/20 09:03 BP 129/47 L 11/09/20 09:03 Pulse Ox 95 11/09/20 09:03 - Orders/Labs/Meds Orders: Active Orders 24 hr Category Date Time Status CULTURE STREP A CONFIRMATION [] Stat Lab 11/09/20 09:37 Results STREP SCRN A RAPID W CULT CONF [] Stat Lab 11/09/20 09:23 Ordered Labs: Laboratory Tests 11/09/20 11/09/20 Range/Units 09:37 09:37 WBC 4.9 L (5.0-10.0) 10^3/uL RBC 4.21 (4.2-5.4) 10^6/uL Hgb 11.9 L (12.0-16.0) g/dL Hct 37.3 (37.0-47.0) % MCV 88.6 (80-100) fL MCH 28.3 (27.0-34.0) pg MCHC 31.9 L (33.0-35.0) g/dL Plt Count 177 (150-450) 10^3/uL Neut % (Auto) 61.7 (42.2-75.2) % Lymph % (Auto) 18.4 L (20.5-50.1) % Jessamine % (Auto) 11.1 H (2-8) % Eos % (Auto) 7.6 H (1.0-3.0) % Baso % (Auto) 1.2 H (0.0-1.0) % Sodium 137 (136-145) mmol/L Potassium 4.0 (3.5-5.1) mmol/L Chloride 100 (98-107) mmol/L Carbon Dioxide 30 (21-32) mmol/L Anion Gap 11.0 (7-13) mEq/L BUN 15 (7-18) mg/dL Creatinine 1.03 H (0.55-1.02) mg/dL Est Cr Clr Drug Dosing 41.38 mL/min Estimated GFR (MDRD) 52 BUN/Creatinine Ratio 14.6 (No establ ref range) Glucose 207 H (70-99) mg/dL Calcium 8.4 L (8.5-10.1) mg/dL Total Bilirubin 0.8 (0.2-1.0) mg/dL AST 22 (15-37) U/L ALT 19 (14-59) U/L Alkaline Phosphatase 98 (46-116) U/L B-Natriuretic Peptide 113 H (0-100) pg/ml Total Protein 6.9 (6.4-8.2) g/dL Albumin 3.2 L (3.4-5.0) g/dL Globulin 3.7 Albumin/Globulin Ratio 0.86 Meds: Medications Discontinued Medications Generic Name Dose Route Start Last Admin Trade Name Freq PRN Reason Stop Dose Admin Benzonatate 200 mg 11/09/20 10:33 Benzonatate 100 Mg Cap PO 11/09/20 10:34 ONETIME ONE - Re-Assessments/Exams Free Text/Narrative Re-Assessment/Exam: 11/09/20 10:51 The patient was reexamined, labs reviewed and x-ray reviewed. I agree with assessment and treatment information for this patient Sepsis Event Note (ED) - Focused Exam Vital Signs: Vital Signs Temp Pulse Resp BP Pulse Ox 11/09/20 09:03 96.8 F L 64 18 129/47 L 95 - My Orders Last 24 Hours: My Active Orders 11/09/20 09:23 STREP SCRN A RAPID W CULT CONF [RM] Stat 11/09/20 09:37 CULTURE STREP A CONFIRMATION [RM] Stat - Assessment/Plan Last 24 Hours: My Active Orders 11/09/20 09:23 STREP SCRN A RAPID W CULT CONF [RM] Stat 11/09/20 09:37 CULTURE STREP A CONFIRMATION [RM] Stat
--- NOTE | 2020-11-09 09:57 | CR ---
PROCEDURE INFORMATION: Exam: XR Chest Exam date and time: 11/09/2020 9:30 AM Age: 75 years old Clinical indication: Cough; Prior surgery; Surgery date: 6+ months TECHNIQUE: Imaging protocol: XR of the chest. Views: 2 views. COMPARISON: CR Chest 1V Frontal 08/16/2020 9:52 AM FINDINGS: Lungs: Unremarkable. No consolidation. Pleural spaces: Unremarkable. No pleural effusion. No pneumothorax. Heart/Mediastinum: Unremarkable. No cardiomegaly. Bones/joints: There is evidence of a previous sternotomy. Old right clavicular fracture. Organs: Surgical clips are noted in the right upper quadrant most likely due to prior cholecystectomy. IMPRESSION: No acute findings.
[2020-11-09] MEDS ORDERED: Benzonatate 100 MG Cap PO ONE (10:33)
== END 2020-11-09 10:57 | disposition home or self-care (01) ==
LOC: DL.ED 08:56
DX: J06.9 Acute upper respiratory infection, unspecified (principal); R05 Cough; I11.0 Hypertensive heart disease with heart failure; I50.9 Heart failure, unspecified; E03.9 Hypothyroidism, unspecified; E11.9 Type 2 diabetes mellitus without complications; E78.5 Hyperlipidemia, unspecified; Z79.82 Long term (current) use of aspirin; Z79.899 Other long term (current) drug therapy; Z79.4 Long term (current) use of insulin
CPT/HCPCS: 36415; 71046; 80053; 83880; 85025; 87081; 87430; 99283; A9270

== ENCOUNTER 2020-11-11 01:32 | Emergency (ER) | payer MEDICARE, BC ==
[2020-11-11 01:52] VITALS: BP 115/49
[2020-11-11] MEDS ORDERED: Albuterol/Ipratropium 3.0-0.5 MG/3 ML Neb Soln NEB ONE (02:06)
[2020-11-11 02:20] VITALS: PULSE 65
[2020-11-11 02:49] LABS: CORONAVIRUS COVID-19 NAA NEGATIVE (NEGATIVE)
--- NOTE | 2020-11-11 03:14 | CR ---
PROCEDURE INFORMATION: Exam: XR Chest Exam date and time: 11/11/2020 2:21 AM Age: 75 years old Clinical indication: Cough; Prior surgery; Surgery date: 6+ months; Surgery type: Quadruple bypass; Additional info: Cough worsening TECHNIQUE: Imaging protocol: XR of the chest. Views: 2 views. COMPARISON: CR Chest 2V 11/09/2020 9:30 AM FINDINGS: Lungs: Small area of scarring and/or subsegmental atelectasis left chest, unchanged from previous; No definite acute parenchymal opacification. Pleural spaces: Unremarkable. No pleural effusion. No pneumothorax. Heart/Mediastinum: Unremarkable. No cardiomegaly. Bones/joints: Previous midline sternotomy. Old healed right clavicular fracture. Scoliosis with degenerative changes in the thoracolumbar spine. IMPRESSION: No definite acute change is appreciated.
--- NOTE | 2020-11-11 03:32 | EDM.PDOC ---
ED HPI GENERAL MEDICAL PROBLEM - General Chief Complaint: Respiratory Problem Stated Complaint: TROUBLE BREATHING Time Seen by Provider: 11/11/20 01:45 Source of Information: Reports: Patient, RN History Limitations: Reports: No Limitations - History of Present Illness INITIAL COMMENTS - FREE TEXT/NARRATIVE: ED with c/o cough. Was in clinic 2 weeks ago given antibiotic, sx did not change, in over weekend and cough continues. Denies fever, Cough non productive, no sore throat, non smoker, No respiratory hx. No vomiting or diarrhea. Cough seem worse at night. Chest discomfort only with cough, No swelling. Bilateral Upper Chest Pain Score (Numeric/FACES): 4 - Related Data Allergies Allergy/AdvReac Type Severity Reaction Status Date / Time No Known Allergies Allergy Verified 11/09/20 09:03 Home Meds: Home Meds Aspirin [Halfprin] 81 mg PO DAILY 09/18/14 [History] Calcium Carbonate/Vitamin D3 [Calcium 500-Vit D3 200 Caplet] 1 tab PO DAILY 09/18/14 [History] Insulin Aspart [Novolog Flexpen] 9 - 15 unit SUBCUT TID 09/18/14 [History] Levothyroxine 125 mcg PO DAILY 09/18/14 [History] Multivitamin with Minerals [Multiple Vitamin] 1 tab PO DAILY 09/18/14 [History] Insulin Detemir [Levemir] 25 unit SUBCUT BID 07/13/16 [History] Lisinopril [Prinivil] 5 mg PO DAILY #30 tablet 08/07/16 [Rx] Carvedilol [Coreg] 6.25 mg PO BID 08/28/16 [History] Clopidogrel [Plavix] 1 tab PO DAILY 10/14/16 [History] Ferrous Sulfate 1 tab PO BIDMEALS 11/16/16 [History] Furosemide [Lasix] 40 mg PO BID 11/17/16 [History] Saxagliptin HCl [Onglyza] 2.5 mg PO DAILY 06/03/18 [History] metFORMIN HCl [Metformin HCl] 1,000 mg PO BID 06/03/18 [History] Past Medical History HEENT History: Reports: Cataract, Impaired Vision Cardiovascular History: Reports: Bypass, Heart Failure, Hypertension, Other (See Below) Other Cardiovascular History: HYPERLIPIDEMIA Respiratory History: Reports: Bronchitis, Recurrent Gastrointestinal History: Reports: Other (See Below) Other Gastrointestinal History: positive hemoccult Genitourinary History: Reports: None 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 Endocrine/Metabolic History: Reports: Diabetes, Type II, Hypothyroidism Other Endocrine/Metabolic History: HYPOTHYRIODISM Hematologic History: Reports: None Immunologic History: Reports: Other (See Below) Other Immunologic History: MRSA Oncologic (Cancer) History: Reports: None Dermatologic History: Reports: Other (See Below) Other Dermatologic History: CYST REMOVAL BREAST - Infectious Disease History Infectious Disease History: Reports: Chicken Pox, Measles, Mumps, Rubella - Past Surgical History Head Surgeries/Procedures: Reports: None HEENT Surgical History: Reports: Cataract Surgery Other HEENT Surgeries/Procedures: Lenses present in eyes bilaterally from cataract surgery Cardiovascular Surgical History: Reports: Coronary Artery Bypass Respiratory Surgical History: Reports: None GI Surgical History: Reports: Colonoscopy Female Surgical History: Reports: Tubal Ligation Endocrine Surgical History: Reports: None Other Musculoskeletal Surgeries/Procedures:: pain to left chest with coughing X 1 week Other Oncologic Surgeries/Procedures: non-cancerous cyst removed from right breast Social & Family History - Family History Family Medical History: No Pertinent Family History Cardiac: Reports: CAD, [place] Musculoskeletal: Reports: Arthritis Neurological: Reports: CVA Endocrine/Metabolic: Reports: Other (See Below) Other Endocrine/Metabolic Family History: Diabetes. Type unknown Oncologic: Reports: Breast - Tobacco Use Tobacco Use Status *Q: Never Tobacco User Second Hand Smoke Exposure: No - Caffeine Use Caffeine Use: Reports: Tea Other Caffeine Use: states only green tea - Recreational Drug Use Recreational Drug Use: No ED ROS GENERAL - Review of Systems Review Of Systems: Comprehensive ROS is negative, except as noted in HPI. ED EXAM, GENERAL - Physical Exam Exam: See Below Exam Limited By: No Limitations General Appearance: Alert, Mild Distress Eye Exam: Bilateral Eye: EOMI Ears: Normal External Exam, Hearing Grossly Normal, Normal TMs Nose: Normal Inspection Throat/Mouth: Normal Inspection, Normal Voice Head: Atraumatic, Normocephalic Neck: Full Range of Motion, Lymphadenopathy (R) Respiratory/Chest: No Respiratory Distress, Lungs Clear, Other. No: Rales, Rhonchi, Wheezing Cardiovascular: Normal Peripheral Pulses, Regular Rate, Rhythm GI/Abdominal: Normal Bowel Sounds Back Exam: Full Range of Motion Extremities: Normal Inspection, No Pedal Edema Neurological: Alert, Oriented, Normal Cognition Psychiatric: Normal Affect, Normal Mood Skin Exam: Warm, Dry, Intact, Normal Color Course - Vital Signs Last Recorded V/S: Last Vital Signs Temp 98.2 F 11/11/20 01:52 Pulse 65 11/11/20 02:07 Resp 20 11/11/20 01:52 BP 115/49 L 11/11/20 01:52 Pulse Ox 98 11/11/20 01:52 - Orders/Labs/Meds Labs: Laboratory Tests 11/11/20 11/11/20 11/11/20 Range/Units 02:02 02:08 02:08 WBC 5.4 (5.0-10.0) 10^3/uL RBC 4.23 (4.2-5.4) 10^6/uL Hgb 11.8 L (12.0-16.0) g/dL Hct 37.1 (37.0-47.0) % MCV 87.7 (80-100) fL MCH 27.9 (27.0-34.0) pg MCHC 31.8 L (33.0-35.0) g/dL Plt Count 169 (150-450) 10^3/uL Neut % (Auto) 67.3 (42.2-75.2) % Lymph % (Auto) 19.0 L (20.5-50.1) % Meagher % (Auto) 8.7 H (2-8) % Eos % (Auto) 4.1 H (1.0-3.0) % Baso % (Auto) 0.9 (0.0-1.0) % Sodium 137 (136-145) mmol/L Potassium 4.0 (3.5-5.1) mmol/L Chloride 100 (98-107) mmol/L Carbon Dioxide 29 (21-32) mmol/L Anion Gap 12.0 (7-13) mEq/L BUN 16 (7-18) mg/dL Creatinine 1.17 H (0.55-1.02) mg/dL Est Cr Clr Drug Dosing 36.43 mL/min Estimated GFR (MDRD) 45 BUN/Creatinine Ratio 13.7 (No establ ref range) Glucose 169 H (70-99) mg/dL Calcium 8.3 L (8.5-10.1) mg/dL Total Bilirubin 0.9 (0.2-1.0) mg/dL AST 22 (15-37) U/L ALT 21 (14-59) U/L Alkaline Phosphatase 106 (46-116) U/L Troponin I High Sens 45 (<=51) pg/mL B-Natriuretic Peptide 110 H (0-100) pg/ml Total Protein 7.0 (6.4-8.2) g/dL Albumin 3.3 L (3.4-5.0) g/dL Globulin 3.7 Albumin/Globulin Ratio 0.89 Influenza Type A RNA Negative (NEGATIVE) Influenza Type B RNA Negative (NEGATIVE) SARS-CoV-2 RNA (DAYAN) Negative (NEGATIVE) Meds: Medications Discontinued Medications Generic Name Dose Route Start Last Admin Trade Name Freq PRN Reason Stop Dose Admin Albuterol Confirm 11/11/20 03:38 Albuterol 6.7 Gm Inhaler Administered 11/11/20 03:39 Dose 6.7 gm INH .STK-MED ONE Albuterol/Ipratropium 3 ml 11/11/20 02:06 11/11/20 02:12 Albuterol/Ipratropium 3.0-0.5 Mg/3 Ml Neb Soln NEB 11/11/20 02:07 3 ml ONETIME ONE Administration Departure - Departure Time of Disposition: 03:28 Disposition: Home, Self-Care 01 Condition: Good Clinical Impression: Cough - Discharge Information *PRESCRIPTION DRUG MONITORING PROGRAM REVIEWED*: No *COPY OF PRESCRIPTION DRUG MONITORING REPORT IN PATIENT TAYLOR: No Instructions: Cough, Adult Referrals: PCP,None [Primary Care Provider] - Forms: ED Department Discharge Additional Instructions: Continue [facility] follow up late week if not improving albuterol inhaler 2 puffs every 4 hours as needed robitussin or muccinex per label instructions Sepsis Event Note (ED) - Evaluation Sepsis Screening Result: No Definite Risk
[2020-11-11] MEDS ORDERED: Albuterol 6.7 GM Inhaler INH ONE (03:38)
== END 2020-11-11 03:52 | disposition home or self-care (01) ==
LOC: DL.ED 01:32
DX: R05 Cough (principal); I11.0 Hypertensive heart disease with heart failure; I50.9 Heart failure, unspecified; M19.90 Unspecified osteoarthritis, unspecified site; E11.9 Type 2 diabetes mellitus without complications; E03.9 Hypothyroidism, unspecified; Z79.82 Long term (current) use of aspirin; Z79.4 Long term (current) use of insulin; Z79.02 Long term (current) use of antithrombotics/antiplatelets; Z79.899 Other long term (current) drug therapy; Z20.822 Contact with and (suspected) exposure to COVID-19
CPT/HCPCS: 0240U; 36415; 71046; 80053; 83880; 84484; 85025; 94640; 99284; A9270; J7620-GY

== ENCOUNTER 2023-03-13 11:14 | Emergency (ER) | payer MEDICARE, OTHER ==
[2023-03-13 11:25] VITALS: BP 119/54; PULSE 65
[2023-03-13] MEDS ORDERED: Take Home: Clindamycin HCl 150 MG, 12 Cap Pack PO ONE (11:34)
[2023-03-13] MEDS ORDERED: Clindamycin HCl 150 MG Cap PO ONE (11:34)
== END 2023-03-13 11:45 | disposition home or self-care (01) ==
LOC: DL.ED 11:14
DX: K11.21 Acute sialoadenitis (principal); I10 Essential (primary) hypertension; I25.2 Old myocardial infarction; E03.9 Hypothyroidism, unspecified; E11.9 Type 2 diabetes mellitus without complications; Z79.82 Long term (current) use of aspirin; Z79.84 Long term (current) use of oral hypoglycemic drugs; Z79.4 Long term (current) use of insulin; Z79.899 Other long term (current) drug therapy
CPT/HCPCS: 99283; A9270

== ENCOUNTER 2024-03-05 12:24 | Emergency (ER) | payer MEDICARE, OTHER ==
[2024-03-05] MEDS ORDERED: Sodium Chloride 0.9% 10 ML Syringe FLUSH PRN (12:59)
[2024-03-05 13:10] LABS: BASOPHILS PERCENT AUTO 0.8 % (0.0-1.0); EOSINOPHILS PERCENT AUTO 2.6 % (1.0-3.0); HEMOGLOBIN 12.4 g/dL (12.0-16.0); LYMPHOCYTES PERCENT AUTO 26.8 % (20.5-50.1); MEAN CORPUSCULAR HEMOGLOBIN 27.2 pg (27.0-34.0); MEAN CORPUSCULAR VOLUME 87.7 fL (80-100); MONOCYTES PERCENT AUTO 9.2 % (2-8); NEUTROPHILS PERCENT AUTO 60.6 % (42.2-75.2); PLATELET COUNT,PLT 113 10^3/uL (150-450); RED BLOOD CELL COUNT 4.56 10^6/uL (4.2-5.4); WHITE BLOOD CELL COUNT,WBC 7.4 10^3/uL (5.0-10.0)
[2024-03-05] MEDS: Iopamidol 612 MG/ML 100 ML Bottle IVPUSH ONE (13:14)
[2024-03-05 13:26] LABS: PROTHROMBIN TIME 10.4 SEC (9.0-12.0); PTT,PARTIAL THROMBOPLSTIN TIME 24.5 SEC (22.0-34.0)
[2024-03-05 13:30] LABS: A/G RATIO 0.9; ALANINE AMINOTRANSFERASE,ALT 23 U/L (14-59); ALBUMIN 3.4 g/dL (3.4-5.0); ALKALINE PHOSPHATASE 80 U/L (46-116); ANION GAP 12.4 mEq/L (7-13); ASPARTATE AMNIOTRANSFERASE,AST 26 U/L (15-37); BILIRUBIN TOTAL 0.9 mg/dL (0.2-1.0); BLOOD UREA NITROGEN,BUN 12 mg/dL (7-18); CALCIUM 8.5 mg/dL (8.5-10.1); CARBON DIOXIDE,CO2 28 mmol/L (21-32); CHLORIDE,CL 105 mmol/L (98-107); CREATINE KINASE,CK 146 U/L (16-191); CREATININE 1.09 mg/dL (0.55-1.02); GLUCOSE RANDOM 117 mg/dL (70-99); LACTIC ACID 1.7 mmol/L (0.4-2.0); MAGNESIUM 2.2 mg/dL (1.8-2.4); POTASSIUM,K 4.4 mmol/L (3.5-5.1); SODIUM,NA 141 mmol/L (136-145)
[2024-03-05 13:31] LABS: ESTIMATED GFR 52 mL/min (>=60)
[2024-03-05 13:33] LABS: B-TYPE NATRIURETIC PEPTIDE,BNP 452 pg/ml (0-100)
[2024-03-05 14:36] LABS: APPEARANCE,URINE CLEAR (CLEAR); BILIRUBIN,URINE NEGATIVE (NEGATIVE); COLOR,URINE YELLOW (YELLOW); GLUCOSE,URINE 500 (NEGATIVE); KETONES,URINE NEGATIVE (NEGATIVE); LEUKOCYTE ESTERASE,URINE NEGATIVE (NEGATIVE); NITRITE,URINE NEGATIVE (NEGATIVE); OCCULT BLOOD,URINE NEGATIVE (NEGATIVE); PROTEIN,URINE NEGATIVE (NEGATIVE); UROBILINOGEN,URINE 0.2 mg/dL (0.2-1.0)
[2024-03-05] MEDS: 50% Dextrose in Water 50 ML Syringe IVPUSH ONE (17:34)
[2024-03-05] MEDS: Sodium Chloride 0.9% 500 ML IV SCH (22:45)
[2024-03-05] MEDS ORDERED: Norepinephrine Bit/D5W Premix 250 ML ONE (23:03)
[2024-03-05 23:18] VITALS: BP 103/53; PULSE 64
== END 2024-03-05 23:10 ==
LOC: DL.ED 12:24
DX: S06.0X1A Concussion with loss of consciousness of 30 minutes or less, initial encounter (principal); T82.897A Other specified complication of cardiac prosthetic devices, implants and grafts, initial encounter; I49.9 Cardiac arrhythmia, unspecified; I25.2 Old myocardial infarction; I11.0 Hypertensive heart disease with heart failure; I50.9 Heart failure, unspecified; M19.90 Unspecified osteoarthritis, unspecified site; E11.9 Type 2 diabetes mellitus without complications; E03.9 Hypothyroidism, unspecified; Z95.5 Presence of coronary angioplasty implant and graft; Z79.4 Long term (current) use of insulin; Z79.82 Long term (current) use of aspirin; Z79.84 Long term (current) use of oral hypoglycemic drugs; Z79.890 Hormone replacement therapy; Z79.899 Other long term (current) drug therapy; W19.XXXA Unspecified fall, initial encounter
CPT/HCPCS: 36415; 70450; 70486; 71045; 71260; 72125; 72129; 72132; 74177; 80053; 81003; 82550; 82947; 83605; 83735; 83880; 84484; 85025; 85610; 85730; 93005; 93010; 96374; 99285; J7040; Q9967